=== PATIENT | male | born 1955 | race Caucasian/White ===

== ENCOUNTER 2017-10-02 16:43 | Emergency (ER) | payer BC, SELFPAY ==
[2017-10-02 16:44] VITALS: BP 165/81; PULSE 77; RESP 18; TEMP 36.3; O2SAT 99; BMI 31.6
--- NOTE | 2017-10-02 16:46 | EKG12_ITS ---
Test Reason : CP Blood Pressure : / mmHG Vent. Rate : 068 BPM Atrial Rate : 068 BPM P-R Int : 188 ms QRS Dur : 108 ms QT Int : 414 ms P-R-T Axes : 039 035 039 degrees QTc Int : 440 ms Normal sinus rhythm Normal ECG Confirmed by MYNOR CALL ([id number]), newspaper photo editor COLEEN KELLER ([id number]) on 10/07/2017 10:38:39 AM Referred By: Malcolm Pérez Confirmed By:MYNOR CALL
--- NOTE | 2017-10-02 16:46 | RAD_ITS ---
STUDY: X-RAY CHEST REASON FOR EXAM: Male, 62 years old. Chest pain TECHNIQUE: Single AP portable view of the chest. COMPARISON: 09/16/2011. FINDINGS: The lungs are clear and expanded. There is no demonstrated pleural abnormality. Normal size heart. Normal mediastinum and alisha. Normal visualized pulmonary arteries. Normal visualized aortic arch and descending thoracic aorta. Normal visualized thoracic spine. Normal visualized ribs, clavicles, and shoulders. There is no demonstrated abnormality of the visualized soft tissue structures of the upper abdomen. RAD/Chest 1 View (Portable) IMPRESSION: Normal x-ray examination of the chest. Electronically Signed: Servando Strong MD at 19:13 EDT , Service support ,
[2017-10-02 17:34] LABS: Absolute Neutrophil Count 3.8 X10^3/uL (2.0-7.7); Basophil# 0.03 X10^3/uL; Basophil% 0.5 % (0-1); Eosinophils% 1.5 % (0-5); Hematocrit 45.3 % (40-54); Hemoglobin 15.8 g/dl (13.0-16.5); Lymphocyte % 30.9 % (19-41); Mean Corp Hgb Conc 34.9 g/gl (32-36); Mean Corpuscular Hgb 31.9 pg (27.0-32.0); Mean Corpuscular Volume 91.3 fL (80-94); Mean Platelet Vol. 9.5 fl (6.2-12.0); Monocyte# 0.59 X10^3/uL; Monocyte% 9.1 % (0-10); Neutrophil # 3.76 X10^3/uL (2.7-7.7); Platelet Count 252 K/mm3 (150-450); RBC Distribution Width CV 13.3 % (11.6-14.6); Red Blood Count 4.96 M/mm3 (4.6-6.2); White Blood Count 6.5 K/mm3 (4.4-11.0)
[2017-10-02 17:35] LABS: POSITIVE COUNT NO; POSITIVE DIFFERENTIAL NO; POSITIVE MORPHOLOGY NO
[2017-10-02 17:47] LABS: Anion Gap 6 (5-15); BUN 14 mg/dL (7-18); Calcium,Total 9.2 mg/dL (8.5-10.1); Chloride 101 mmol/L (98-107); Creatinine, Serum 0.93 mg/dL (0.70-1.30); EST Glomerular Filtration Rate 87 mL/min (>60); Est Glom Filt Rate - Afr Amer 105 mL/min (>60); Estimated Creatinine Clearance 78.66 ml/min; Glucose 91 mg/dL (74-106); Potassium 3.5 mmol/L (3.5-5.1); Sodium Level 135 mmol/L (136-145)
[2017-10-02 18:35] VITALS: BP 140/86; PULSE 67; RESP 16; O2SAT 98
--- NOTE | 2017-10-02 18:41 | ED.DCSUM_ITS ---
- ER Visit Summary Date of Service: 10/02/17 Chief Complaint: 3 episodes of chest tightness History of Present Illness: The patient is a 62 M who reports 3 episodes of chest tightness. First 1 occurred upon awakening this morning prior to work. That episode of chest tightness lasted 3060 minutes. Second episode occurred while stationary at work moving objects with his arms. The second episode lasted approximately 30 minutes. The fourth episode lasted for hours and reason why he presented. There is no radiation associated symptoms. There is no alleviating or exacerbating or precipitating factors. He believes he may have had improvement after he took aspirin this morning. He does have history of GERD and states he has burning when he has GERD. He denies any exertional symptoms. He denies black or maroon stool. He denies fever, chills night sweats. He denies any ocular, visual auditory symptoms. He denies cough, orthopnea PND. He denies any abdominal or back pain. He denies food intolerance. He denies leg pain, swelling discoloration. There is no history of PE or DVT. He has no known history of coronary disease. He states he had a similar episode 8 years ago and workup was negative by Dr. Lozada. Physical Examination: Patient appears no distress. He is smiling laughing during H&P. Blood pressure is elevated 1 65/81. Head is atraumatic normocephalic. Pupils are equal round reactive. Extraocular muscles are intact. TMs are pearly white with landmarks noted. Nares patent with no drainage. Posterior pharynx without erythema or exudate. Uvula is midline. There is no dysphonia or dysphasia. Trachea is midline. There is no stridor with auscultation of the neck. Heart is regular without murmur, gallop or rub. S1 and S2 are normal. Lungs are clear to auscultation with good movement of air bilaterally. Abdomen is soft nontender with no palpable cell mass abdominal bruit. There is no asymmetry, swelling, discoloration, leg vein distention, palpable cords or tenderness along the distribution of the deep venous system. Neuro exam is nonfocal Test Results: CBC BMP troponin are all normal. EKG is normal with a rate of 68. Portal chest x-ray interpreted by me as normal. Emergency Department Course and Treatment: Need to evaluate whether the chest pain is cardiac versus pulmonary versus GI. 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 Disposition: Discharged to home Impression: Midsternal chest pain unknown etiology This note was generated with [employer] dictation software. It may contain incorrect words, spelling, and punctuation that were not noted in review of the chart prior to signing ED Disposition - Plan for ED Patient: Disposition: Home or Assisted Living Chief Complaint: Chest Pain Instructions: ED Chest Pain Atypical Unkn Cause Referrals: Mayank Gao MD [Primary Care Provider] - 2 Days
--- NOTE | 2017-10-02 18:55 | ED.RN ---
Verbal and written d/c instructions given. All questions answered. Skin w/d. ABCs intact. Gait steady out of department.
== END 2017-10-02 18:55 | disposition home or self-care (01) ==
PROVIDERS: Emergency Provider Emergency Medicine; Family Provider Family Medicine; PCP Family Medicine
DX: R07.89 Other chest pain (principal); K21.9 Gastro-esophageal reflux disease without esophagitis; Z79.82 Long term (current) use of aspirin; Z79.899 Other long term (current) drug therapy
CPT/HCPCS: 71045; 80048; 84484; 85025; 93005; 99285; A4216

== ENCOUNTER 2017-10-26 23:45 | Emergency (ER) | payer BC, SELFPAY ==
[2017-10-26 23:51] VITALS: BP 155/86; PULSE 66; RESP 19; TEMP 36.7; O2SAT 97; BMI 32.1
--- NOTE | 2017-10-27 00:06 | EKG12_ITS ---
Test Reason : CP Blood Pressure : / mmHG Vent. Rate : 072 BPM Atrial Rate : 072 BPM P-R Int : 176 ms QRS Dur : 110 ms QT Int : 396 ms P-R-T Axes : 046 048 049 degrees QTc Int : 433 ms Sinus rhythm with Premature supraventricular complexes Otherwise normal ECG Confirmed by BERNABE SALAZAR, JORGE ([id number]), editorial assistant KARTIK LANDRUM ([id number]) on 10/29/2017 1:42:54 PM Referred By: PATTI Confirmed By:JORGE KIDD MD
--- NOTE | 2017-10-27 00:10 | RAD_ITS ---
STUDY: X-RAY CHEST REASON FOR EXAM: Male, 62 years old. Chest pain TECHNIQUE: A single frontal view of the chest was obtained. COMPARISON: October 02, 2017 FINDINGS: The lungs are adequately aerated. There is minimal asymmetric opacity in the right lung base. There is no demonstrated pleural abnormality. The cardiac silhouette is normal in size. The mediastinum and hilar regions are unremarkable. Normal visualized pulmonary arteries. There is atherosclerotic calcification of the thoracic aorta. There are diffuse degenerative changes of the visualized spine. There are degenerative changes in both shoulders. There is no demonstrated abnormality of the visualized upper abdomen. RAD/Chest 1 View (Portable) IMPRESSION: There are minimal right basilar opacities which can be seen with atelectasis or mild consolidation. There is no pleural effusion. Electronically Signed: Roselia Connolly MD at 2:02 EDT Tel Direct: [phone], Service support ,
[2017-10-27 00:20] LABS: Absolute Lymphocyte Count 3.34 X10^3/ul (0.83-4.51); Absolute Neutrophil Count 3.3 X10^3/uL (2.0-7.7); Basophil# 0.04 X10^3/uL; Basophil% 0.5 % (0-1); Eosinophil# 0.25 X10^3/uL; Eosinophils% 3.3 % (0-5); Hematocrit 45.1 % (40-54); Hemoglobin 15.8 g/dl (13.0-16.5); Lymphocyte # 3.34 X10^3/ul (4.0); Lymphocyte % 43.7 % (19-41); Mean Corpuscular Hgb 32.3 pg (27.0-32.0); Mean Corpuscular Volume 92.2 fL (80-94); Mean Platelet Vol. 9.8 fl (6.2-12.0); Monocyte# 0.67 X10^3/uL; Monocyte% 8.8 % (0-10); Neutrophil # 3.34 X10^3/uL (2.7-7.7); Neutrophil % 43.6 % (47-70); Platelet Count 271 K/mm3 (150-450); RBC Distribution Width CV 13.5 % (11.6-14.6); RBC Distribution Width SD 45.4 fl (35.1-43.9); Red Blood Count 4.89 M/mm3 (4.6-6.2); White Blood Count 7.7 K/mm3 (4.4-11.0)
[2017-10-27 00:21] LABS: POSITIVE COUNT NO; POSITIVE DIFFERENTIAL NO; POSITIVE MORPHOLOGY NO
--- NOTE | 2017-10-27 00:41 | ED.DCSUM_ITS ---
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 Gao. He reports he has chest pain that began approximately 6 hours ago while he was at rest eating dinner. It is a continuous dull, aching pain. Reports he has a burning pain that began approximately 1 hour later. There is no radiation to his jaw, shoulders, or back. Worst pain is 4-10 at worst and 3-10 currently. Is worsened by nothing including exertion, movement, or breathing. First pain is improved by standing up and walking. No associated nausea, vomiting, diaphoresis, shortness of breath. Patient denies any chest pain or change in dyspnea exertion in the past month. Physical Examination: Vitals: Stable. Afebrile. General: Well-nourished and well-developed. Head: Normocephalic atraumatic. Neck: Supple, no lymphadenopathy. No JVD. Nontender. Cardiovascular: Regular rate and rhythm. No murmurs. Respiratory: No respiratory distress. Clear to auscultation bilaterally. Abdominal: Soft, nontender, nondistended, normal bowel sounds. No guarding, rebound, or peritoneal signs. Back: Nontender. Extremities: Nontender, no edema. Skin: Normal color, no rash. Neurologic: Alert and oriented ?3. Cranial nerves II through XII are intact. Normal strength and sensation. Psych: Normal affect. Test Results: EKG is sinus at 72 with a single PAC. Is unchanged from last month. CBC is marked for segment neutrophils 44 lymphs at 45. Chest x-ray shows no acute disease. Chem-7 is normal. Troponin is negative despite 6 hours of constant pain. Emergency Department Course and Treatment: Patient had taken aspirin prior to arrival. He was given a GI cocktail p.o. Treatment Plan: This time the patient's pain is very atypical. I do not feel that it represents angina. He will be discharged instructions to follow-up his primary care physician within 3-5 days for another exam. Return to the emergency department for any worsening symptoms. Disposition: To home in improved and stable condition. Impression: 1. Atypical chest pain. 2. KARAN score of 2. This note was generated with [employer] software. It may contain incorrect words, spelling, and punctuation that were not noted in review of the chart prior to signing ED Disposition - Plan for ED Patient: Chief Complaint: Chest Pain Instructions: ED Chest Pain Atypical Unkn Cause Referrals: Mayank Gao MD [Primary Care Provider] - 3-5 Days
[2017-10-27 00:46] LABS: Anion Gap 8 (5-15); BUN 16 mg/dL (7-18); BUN/Creat Ratio 15.8 RATIO (10-20); Chloride 103 mmol/L (98-107); Creatinine, Serum 1.01 mg/dL (0.70-1.30); EST Glomerular Filtration Rate 79 mL/min (>60); Est Glom Filt Rate - Afr Amer 96 mL/min (>60); Estimated Creatinine Clearance 72.43 ml/min; Glucose 106 mg/dL (74-106); Potassium 4.3 mmol/L (3.5-5.1); Sodium Level 137 mmol/L (136-145)
[2017-10-27 01:00] VITALS: BP 136/76; PULSE 62; RESP 16; O2SAT 96; O2SAT 97
== END 2017-10-27 01:04 | disposition home or self-care (01) ==
LOC: ED 10-27 00:21
PROVIDERS: Emergency Provider Emergency Medicine; Family Provider Family Medicine; PCP Family Medicine
DX: R07.89 Other chest pain (principal); I49.1 Atrial premature depolarization; I10 Essential (primary) hypertension; E03.9 Hypothyroidism, unspecified; G47.33 Obstructive sleep apnea (adult) (pediatric); Z87.19 Personal history of other diseases of the digestive system; Z86.39 Personal history of other endocrine, nutritional and metabolic disease; Z79.82 Long term (current) use of aspirin; Z79.899 Other long term (current) drug therapy
CPT/HCPCS: 71045; 80048; 84484; 85025; 93005; 99285; A4216

== ENCOUNTER 2017-12-06 09:10 | Day surgery (SDC) | payer BC, SELFPAY ==
[2017-12-06] VITALS (21 sets, daily range): BP systolic 130–154; BP diastolic 62–84; PULSE 53–72; RESP 12–19; TEMP 36.8–37.1; O2SAT 94–100; BMI 31.8; BMI 31.6; BMI 30.9
[2017-12-06 11:40] LABS: ACT Activated Clotting Time 246 sec (74-137)
[2017-12-06] MEDS: 0.9% Normal Saline 1,000 ML 150 ML IV (12:15)
--- NOTE | 2017-12-06 13:46 | CRPHASE1 ---
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 Phase II:: Yes Phase II Referral:: [facility] Start Phase II:: After follow up visit with Cardiology Phase I Charge:: Level I - Education Risk Factors/Lifestyle Smoking Status: Never smoker Second-Hand Smoke:: No Hx Hypertension: Yes Hx Diabetes Mellitus Type 1: No Hx Diabetes Mellitus Type 2: No Hx Metabolic Disorders: No Hx Dyslipidemia: Yes Hx Obesity: Yes Height: 1.73 m Weight:: 92.079 kg BMI: 30.9 Stress: Work-related ETOH: No Risk Factor for Sedentary Lifestyle: Lowest Risk, Moderate Risk Family History: Heart Disease Phase I Education Given On:: [place], Nutrition, Antiplatelet medication, CHF Issues Affecting Care:: None Knowledge of Condition:: Yes Learning Preferences: Verbal, Written, Audio/Visual, Demonstration Hospital Course Presenting Symptoms:: Dull CP Pain Description: Dull Medical/Surgical History Hypertension:: Yes Dyslipidemia:: Yes Discharge/Home/Social Eval Marital Status: - Has 2 children 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
--- NOTE | 2017-12-06 13:50 | CRPHASE1_ITS ---
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 Phase II:: Yes Phase II Referral:: [facility] Start Phase II:: After follow up visit with Cardiology Phase I Charge:: Level I - Education Risk Factors/Lifestyle Smoking Status: Never smoker Second-Hand Smoke:: No Hx Hypertension: Yes Hx Diabetes Mellitus Type 1: No Hx Diabetes Mellitus Type 2: No Hx Metabolic Disorders: No Hx Dyslipidemia: Yes Hx Obesity: Yes Height: 1.73 m Weight:: 92.079 kg BMI: 30.9 Stress: Work-related ETOH: No Risk Factor for Sedentary Lifestyle: Lowest Risk, Moderate Risk Family History: Heart Disease Phase I Education Given On:: [place], Nutrition, Antiplatelet medication, CHF Issues Affecting Care:: None Knowledge of Condition:: Yes Learning Preferences: Verbal, Written, Audio/Visual, Demonstration Hospital Course Presenting Symptoms:: Dull CP Pain Description: Dull Medical/Surgical History Hypertension:: Yes Dyslipidemia:: Yes Discharge/Home/Social Eval Marital Status: - Has 2 children 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
--- NOTE | 2017-12-06 13:52 | CRPH1.INSTRU ---
General Education CAD and cardiac anatomy and function:: Patient communicates acknowledgment, Needs reinforcement Explanation of diagnoses and procedures:: Patient communicates acknowledgment, Needs reinforcement Sign/Symptoms of KS:: Patient communicates acknowledgment, Needs reinforcement Antiplatelet therapy: Patient communicates acknowledgment, Needs reinforcement Proper use of NTG-SL: Patient communicates acknowledgment, Needs reinforcement Emergency procedures and activation of EMS: Patient communicates acknowledgment, Needs reinforcement Compliance of all prescribed medications: Patient communicates acknowledgment, Needs reinforcement Smoking Patient Nicotine/Smoking Risk Factors Are:: Never smoked Nicotine/Smoking Response Code:: Not instructed Dyslipidemia Patient Dyslipidemia Risk Factors Are:: Total Cholesterol, Triglycerides, HDL, LDL Recommendations Include:: Lipid profile not available Dyslipidemia Response Code:: Patient communicates acknowledgment, Needs reinforcement Overweight/Obesity Patient Overweight/Obesity Risk Factors Are:: Obesity - > or = 30 Recommendations Include:: Weight loss of 5-10%, Reduced calorie diet, Exercise 5-7 times/week Overweight/Obesity:: Patient communicates acknowledgment, Needs reinforcement Hypertension Recommendations Include:: Maintain BP <130/85, DASH dietary guidelines, Decrease/maintain normal body weight, Moderation of ETOH Hypertension:: Patient communicates acknowledgment, Needs reinforcement Heart Disease Recommendations Include:: Educated family members of their risk, Educated family members of importance of prevention of heart disease Heart Disease Response Code:: Patient communicates acknowledgment, Needs reinforcement - Family now with risk factor as pt is 62 years old. Diabetes Patient Diabetes Risk Factors Are:: No documented hx of diabetes Diabetes:: Not instructed Metabolic Syndrome Metabolic Syndrome Response Code:: Not instructed Sedentary Patient Sedentary Risk Factors Are:: Lack of regular exercise Recommendations Include:: Aerobic exercise 5-7 times/week for 20-30 minutes continuously, Benefits of regular exercise, Discussed home walking program, Monitored Outpatient Cardiac Rehab Sedentary Response Code:: Patient communicates acknowledgment, Needs reinforcement Stress Recommendations Include:: Identification of stressors, and assessment of coping skills, Stress management techniques Stress Response Code:: Patient communicates acknowledgment, Needs reinforcement
--- NOTE | 2017-12-06 13:55 | CRPH1.INST_ITS ---
General Education CAD and cardiac anatomy and function:: Patient communicates acknowledgment, Needs reinforcement Explanation of diagnoses and procedures:: Patient communicates acknowledgment, Needs reinforcement Sign/Symptoms of MS:: Patient communicates acknowledgment, Needs reinforcement Antiplatelet therapy: Patient communicates acknowledgment, Needs reinforcement Proper use of NTG-SL: Patient communicates acknowledgment, Needs reinforcement Emergency procedures and activation of EMS: Patient communicates acknowledgment , Needs reinforcement Compliance of all prescribed medications: Patient communicates acknowledgment, Needs reinforcement Smoking Patient Nicotine/Smoking Risk Factors Are:: Never smoked Nicotine/Smoking Response Code:: Not instructed Dyslipidemia Patient Dyslipidemia Risk Factors Are:: Total Cholesterol, Triglycerides, HDL, LDL Recommendations Include:: Lipid profile not available Dyslipidemia Response Code:: Patient communicates acknowledgment, Needs reinforcement Overweight/Obesity Patient Overweight/Obesity Risk Factors Are:: Obesity - > or = 30 Recommendations Include:: Weight loss of 5-10%, Reduced calorie diet, Exercise 5 -7 times/week Overweight/Obesity:: Patient communicates acknowledgment, Needs reinforcement Hypertension Recommendations Include:: Maintain BP <130/85, DASH dietary guidelines, Decrease /maintain normal body weight, Moderation of ETOH Hypertension:: Patient communicates acknowledgment, Needs reinforcement Heart Disease Recommendations Include:: Educated family members of their risk, Educated family members of importance of prevention of heart disease Heart Disease Response Code:: Patient communicates acknowledgment, Needs reinforcement - Family now with risk factor as pt is 62 years old. Diabetes Patient Diabetes Risk Factors Are:: No documented hx of diabetes Diabetes:: Not instructed Metabolic Syndrome Metabolic Syndrome Response Code:: Not instructed Sedentary Patient Sedentary Risk Factors Are:: Lack of regular exercise Recommendations Include:: Aerobic exercise 5-7 times/week for 20-30 minutes continuously, Benefits of regular exercise, Discussed home walking program, Monitored Outpatient Cardiac Rehab Sedentary Response Code:: Patient communicates acknowledgment, Needs reinforcement Stress Recommendations Include:: Identification of stressors, and assessment of coping skills, Stress management techniques Stress Response Code:: Patient communicates acknowledgment, Needs reinforcement
--- NOTE | 2017-12-06 16:04 | PCM.DC.CCA ---
Discharge Diet: Low fat/ Low Cholesterol Discharge Activity: Return to Normal Activity May shower in (days): 1 May resume sexual activity in: 1-2 weeks Lifting Restrictions: Do not lift anything greater than 10 pounds for 3 days. Call your doctor if your incision/area has: Continuous Slow Oozing, Sudden Increased Bleeding, Increased Pain/ Swelling, Increased Redness, Foul Smelling Discharge, Swelling at the incision site Call your doctor if you observe: Fever of 101 or Higher, Shortness of breath, Chest pain Remove Dressing in (days):: 1 Cleanse incision/area with: Soap & Water Additional Instructions: You will continue with Plavix for at least one year. If anyone asks you to stop or hold this please call Dr. Argueta first. Please contact Dr. Argueta's office regarding follow-up appointment. Ideally you should be seen recently after discharge and will be instructed to begin cardiac rehab. Allergies/Adverse Reactions: Allergies adhesive tape Adverse Reaction (Verified 12/05/17 08:38) Rash fenofibrate [From Tricor] Adverse Reaction (Verified 10/26/17 23:55) Other made me mean Medications to take at Discharge Aspirin 81 mg PO DAILY 10/02/17 Diltiazem HCl [Cartia Xt] 300 mg PO DAILY 10/02/17 Levothyroxine [Synthroid] 75 mcg PO DAILY 10/02/17 Meloxicam 15 mg PO DAILY PRN 10/02/17 Tadalafil [Cialis] 20 mg PO DAILY PRN 10/02/17 Testosterone [Androgel] 1.25 gm TD DAILY 10/02/17 Valsartan/Hydrochlorothiazide [Valsartan-Hctz 160-25 mg Tab] 1 each PO DAILY 10/02/17 clopidogrel 75 mg tablet 75 mg PO QDAY #30 tab 11/28/17 Atorvastatin Calcium 40 mg PO QHS 12/05/17 Cholecalciferol (Vitamin D3) 5,000 unit PO DAILY 12/05/17 Docosahexanoic Acid [Algal [place]-3 Dha] 1,200 mg PO BID 12/05/17 Glucosamine HCl/Chondr Claudio A Na [Sv Glucosamine-Chondroit Cplt] 1 each PO DAILY 12/05/17 Nitroglycerin [Nitrostat] 0.4 mg SUBLINGUAL Q5M PRN 12/05/17 Omeprazole [Prilosec] 20 mg PO DAILY 12/05/17 Primary Care Physician: Mayank Gao MD [Primary Care Provider] - Test Results: Test results from this visit will be discussed in further detail at your follow-up appointment, if applicable. Please Follow Up With: Dr. Argueta When: Call his office to schedule Proposed Discharge Date: 12/07/17 Cardiac Rehabilitation Info Cardiac Rehabilitation Program Information: Cardiac Rehabilitation is important for patients like you who are recovering from a heart problem. Cardiac rehabilitation programs are recognized as integral to the continued care of the patient with coronary heart disease. The cardiac rehabilitation program is designed to optimize a patient's physical, psychological, and social functioning. Health medicare contact specialist work in cardiac rehabilitation programs and assist you with getting the treatments you need to get stronger and healthier - like exercise, healthy eating habits, and medications. Cardiac rehabilitation has been show to help people with heart problems live longer and have better life enjoyment than people who do not go to cardiac rehabilitation. Please contact the Cardiac Rehabilitation Program at [facility] at in two weeks if you have not heard from them.
[2017-12-06] MEDS: Pantoprazole Sodium 20 MG Tablet PO (21:00)
[2017-12-06] MEDS: Atorvastatin Calcium 40 MG Tablet PO (21:00)
[2017-12-07] VITALS (12 sets, daily range): BP systolic 126–153; BP diastolic 60–76; PULSE 53–67; RESP 11–19; TEMP 36.9–37; O2SAT 96–98
[2017-12-07 04:58] LABS: Hematocrit 39.5 % (40-54); Hemoglobin 13.5 g/dl (13.0-16.5); Mean Corp Hgb Conc 34.2 g/gl (32-36); Mean Corpuscular Hgb 31.8 pg (27.0-32.0); Mean Corpuscular Volume 93.2 fL (80-94); Mean Platelet Vol. 9.9 fl (6.2-12.0); Platelet Count 227 K/mm3 (150-450); RBC Distribution Width CV 13.5 % (11.6-14.6); RBC Distribution Width SD 45.9 fl (35.1-43.9); Red Blood Count 4.24 M/mm3 (4.6-6.2); White Blood Count 8.3 K/mm3 (4.4-11.0)
[2017-12-07 05:03] LABS: Scan Indicated on CBC? Y/N NO
[2017-12-07 05:18] LABS: Anion Gap 11 (5-15); BUN 11 mg/dL (7-18); BUN/Creat Ratio 12.5 RATIO (10-20); Chloride 108 mmol/L (98-107); Cholesterol 99 mg/dL (200); Creatinine, Serum 0.88 mg/dL (0.70-1.30); EST Glomerular Filtration Rate 93 mL/min (>60); Est Glom Filt Rate - Afr Amer 112 mL/min (>60); Estimated Creatinine Clearance 83.13 ml/min; Glucose 87 mg/dL (74-106); High Density Lipoprotein 23 mg/dL; Potassium 3.6 mmol/L (3.5-5.1); Sodium Level 143 mmol/L (136-145); Triglycerides 155 mg/dL; Very Low Density Lipoprotein 31 mg/dL (5-40)
[2017-12-07] MEDS: 0.9% NaCl Peripheral Flush Adult/Peds IV (06:15)
[2017-12-07] MEDS: Levothyroxine 75 MCG Tablet PO (06:15)
[2017-12-07] MEDS: Aspirin 81 MG TAB.CHEW PO (08:06)
[2017-12-07] MEDS: Clopidogrel Bisulfate 75 MG Tablet PO (08:44)
[2017-12-07] MEDS: dilTIAZem CD 300 MG Capsule PO (08:44)
[2017-12-07] MEDS: Losartan Potassium 50 MG Tablet PO (08:45)
[2017-12-07] MEDS: hydroCHLOROthiazide 25 MG Tablet PO (08:45)
[2017-12-07] MEDS: Pantoprazole Sodium 20 MG Tablet PO (08:45)
--- NOTE | 2017-12-07 09:23 | PCM.PN.CARD ---
Subjectve: Patient doing very well this morning, feels much better. Right groin is clean/dry/intact, no hematoma, bruits or thrills. He has slight tenderness which he had during the procedure. Telemetry is negative overnight. EKG this morning shows normal sinus rhythm, no acute changes. Hemoglobin and creatinine have been within nominal limits. Objective: Vital Signs Temp Pulse Resp BP Pulse Ox 98.6 F 67 18 153/71 H 97 12/07/17 08:01 12/07/17 08:01 12/07/17 08:01 12/07/17 08:01 12/07/17 08:01 Oxygen Delivery Method Room Air Weight: 203 lb Body Mass Index (BMI) 31.6 Intake and Output for Last 24 Hours 12/05/17 12/06/17 12/07/17 23:59 23:59 23:59 Intake Total 1881 / 1881 240 / 240 Output Total 400 / 400 Balance 1481 / 1481 240 / 240 General: Awake, Alert, Oriented x 3 HEENT: PERRL, EOMI, Sclera Non Icteric Neck: Supple, Good ROM, No Lymph Node Enlargement Lungs: Clear to auscultation Cardiovascular: Regular Rhythm, Normal S1, Normal S2, No Murmurs, No Rubs, No Gallops Vascular: No Carotid Bruits, Normal Femoral Pulses, Normal Radial Pulses, Normal Dorsalis Pedal Pulse, Normal Posterior Tibial Pulses Abdomen: Bowel Sounds Present, Soft, Non Tender, No HSM, No Organomegaly Extremities: No Cyanosis, No Clubbing, No edema Neurological: No Focal Motor or Sensory Deficit 12/07/17 04:40: WBC 8.3, RBC 4.24 L, Hgb 13.5, Hct 39.5 L, MCV 93.2, MCH 31.8, MCHC 34.2, RDW 13.5, RDW Differential 45.9 H, Plt Count 227, MPV 9.9 12/07/17 04:40: Sodium 143, Potassium 3.6, Chloride 108 H, Carbon Dioxide 24.0, Anion Gap 11, BUN 11, Creatinine 0.88, Est GFR (MDRD) Af Amer 112, Est GFR (MDRD) Non-Af 93, BUN/Creatinine Ratio 12.5, Glucose 87, Calcium 8.0 L, Triglycerides 155, Cholesterol 99, LDL Cholesterol 45, VLDL Cholesterol 31, HDL Cholesterol 23 L Rhythm: EKG: ECHO: Stress Test: Cardiac Cath: PCI: CT Surgery: Holter monitor: EPS: PPM: CXR: Chest CT Scan: Medical Necessity - Tobacco Use Smoking Status: Never smoker Assessment/Plan 1. Coronary artery disease: The patient presented with unstable angina symptoms with abnormal stress test consistent with obtuse marginal stenosis. The patient was found to have a significant critical lesion in the ostium proximal portion of his obtuse marginal #2. He underwent successful angioplasty and drug-eluting stenting of the ostial proximal OM #2 with no encroachment upon the main AV circumflex. Patient feels much better today, and recommend continuing his aspirin, Plavix, diltiazem per Dr. Lozada, losartan, and hydrochlorothiazide. He will return to either Dr. Lozada's or my office in 2 weeks time for a groin check, followed by cardiac rehab in 2 weeks time. The patient's remaining coronary arteries have minimal nonobstructive disease of the LAD and right coronary artery. No additional intervention or FFR evaluation is needed at this time. 2. Hyperlipidemia: Continue Lipitor therapy. Repeat lipid profile at the conclusion of cardiac rehab. 3. Patient may be discharged home. He may remain off work for 1 week's time for his groin to heal, he will follow-up with Dr. Lozada going forward. Code Visit Inpatient E&M: 37520 Subs Hosp L2
== END 2017-12-07 09:45 | disposition home or self-care (01) ==
LOC: CLSP 09:11 → ICU 10:46
PROVIDERS: Family Provider Family Medicine; PCP Family Medicine; Visit Provider Internal Medicine Cardiovascular Disease
DX: I25.10 Atherosclerotic heart disease of native coronary artery without angina pectoris (principal); R94.39 Abnormal result of other cardiovascular function study; I11.9 Hypertensive heart disease without heart failure; G47.33 Obstructive sleep apnea (adult) (pediatric); E78.5 Hyperlipidemia, unspecified; K57.30 Diverticulosis of large intestine without perforation or abscess without bleeding; E03.9 Hypothyroidism, unspecified; K21.9 Gastro-esophageal reflux disease without esophagitis; Z87.442 Personal history of urinary calculi; Z79.82 Long term (current) use of aspirin; Z79.899 Other long term (current) drug therapy
CPT/HCPCS: 80048; 80061; 85027; 85347; 92921; 92928; 93005; 93458; C1760; J7030; J7040; Q9967; A4216; C1725; C1769; C1874; C1887; C1894; C9600

== ENCOUNTER 2017-12-09 00:32 | Emergency (ER) | payer BC, SELFPAY ==
[2017-12-06 13:52] VITALS: BMI 30.9
[2017-12-09 00:32] VITALS: BP 142/73; PULSE 69; RESP 18; TEMP 36.6; O2SAT 97; BMI 30.3
[2017-12-09 00:41] VITALS: O2SAT 98
[2017-12-09] MEDS: Aspirin 81 MG TAB.CHEW 162 MG PO (00:45)
--- NOTE | 2017-12-09 00:45 | ED.DCSUM_ITS ---
- ER Visit Summary Date of Service: 12/09/17 Chief Complaint: Chest pain History of Present Illness: The patient is a 62 M who presents for 3-1/2 hours of chest tightness and burning. Patient was watching television in his recliner when he began having substernal chest tightness. It then progressed to additional burning sensation in the left chest. Patient took Mylanta and his GERD medications, with some resolution of the chest tightness but persistent burning. He denies any shortness of breath, fever, abdominal pain, back pain, nausea or vomiting, radiation of the pain at all, or any other complaints. He had similar symptoms recently, which resulted in him getting a cardiac catheterization and a stent placed 2 days ago. Patient is now on Plavix. He took 2 baby aspirin prior to presentation. Pain is currently rated at a 2 out of 10. Physical Examination: Vital signs: afebrile, hemodynamically stable, no hypoxia on room air General: well nourished, well developed, in no distress Skin: warm, dry, no rash, no pallor HEENT: normocephalic and atraumatic; PERRL, EOMI, moist mucous membranes Cardiovascular: regular rate and rhythm without murmurs, no peripheral edema, 2 + pulses all distal extremities Respiratory: No increased work of breathing, lungs are clear to auscultation bilaterally, no rales, rhonchi or wheezing Abdominal: Abdomen is soft, nontender with normoactive bowel sounds, no guarding or rebound, no masses MSK: Moves all extremities, no deformities, normal strength Neuro: Awake and alert, oriented ?4. No facial droop, sensation and motor function intact and symmetric Test Results: [] Emergency Department Course and Treatment: Patient was given an additional 162 mg of aspirin and sublingual nitro. EKG showed a sinus rhythm with Q-wave in lead III, no other changes. Patient had no change in his discomfort with the sublingual nitroglycerin, and his pain was mild to begin with. The tightness subsided and patient had intermittent burning sensation. He was then given a GI cocktail and had resolution of his symptoms. Labs showed a troponin of 0.078 , which is mildly elevated, but patient did have a cardiac catheterization within the last 72 hours and thus it may be elevated secondary to the catheterization and stent placement. There are no trended troponins in patient' s record to compare tonight troponin to. Labs were otherwise unremarkable. Chest x-ray showed no acute changes. Patient was discussed with Dr. Stephen, who felt the patient's symptoms are unlikely to be cardiac ischemia, given the successful catheterization on Saturday. If patient's symptoms have resolved, patient can be discharged home and follow-up with Dr. Suarez as planned. Patient was reevaluated and was pain-free. He had an occasional twinge that he could pinpoint with one finger on his mid chest. Otherwise no symptoms. EKG was repeated to look for any changes in the meantime. Repeat EKG was unchanged. Patient was pain-free at time of discharge. He will return if any worsening of his condition. Treatment Plan: [] Disposition: [] Impression: Chest pain, s/p recent cardiac stent placement This note was generated with [employer] dictation software. It may contain incorrect words, spelling, and punctuation that were not noted in review of the chart prior to signing ED Disposition - Plan for ED Patient: Disposition: Home or Assisted Living Chief Complaint: Chest Pain Instructions: Coronary Stents, ED Chest Pain Atypical Unkn Cause Referrals: Sixto Argueta MD [STAFF PHYSICIAN] - 1 Day for another exam Mayank Gao MD [Primary Care Provider] - 3-5 Days if not improving Additional Instructions: Please make an appointment with your market research executive as soon as possible. Continue all medications and follow all instructions that you were given after your cardiac catheterization. If you have any return of your chest pain or any new concerning symptoms, please return to the emergency department immediately for another evaluation.
[2017-12-09 00:46] VITALS: BP 130/76; PULSE 68
[2017-12-09 00:56] LABS: Absolute Lymphocyte Count 2.57 X10^3/ul (0.83-4.51); Absolute Neutrophil Count 4.1 X10^3/uL (2.0-7.7); Basophil# 0.03 X10^3/uL; Basophil% 0.4 % (0-1); Eosinophil# 0.23 X10^3/uL; Hemoglobin 14.4 g/dl (13.0-16.5); Lymphocyte # 2.57 X10^3/ul (4.0); Lymphocyte % 33.3 % (19-41); Mean Corp Hgb Conc 34.3 g/gl (32-36); Mean Corpuscular Hgb 31.9 pg (27.0-32.0); Mean Corpuscular Volume 92.9 fL (80-94); Mean Platelet Vol. 9.8 fl (6.2-12.0); Monocyte# 0.75 X10^3/uL; Monocyte% 9.7 % (0-10); Neutrophil # 4.12 X10^3/uL (2.7-7.7); Neutrophil % 53.5 % (47-70); POSITIVE COUNT NO; POSITIVE DIFFERENTIAL NO; POSITIVE MORPHOLOGY NO; Platelet Count 243 K/mm3 (150-450); RBC Distribution Width CV 13.3 % (11.6-14.6); Red Blood Count 4.52 M/mm3 (4.6-6.2); White Blood Count 7.7 K/mm3 (4.4-11.0)
[2017-12-09 00:58] LABS: International Normalized Ratio 1.1; Prothrombin Time (Protime)PT. 14.3 SECONDS (11.7-14.9)
[2017-12-09 00:59] LABS: Partial Thromboplast Time 29.3 Seconds (24.1-36.2)
[2017-12-09 01:19] LABS: Anion Gap 8 (5-15); BUN 13 mg/dL (7-18); BUN/Creat Ratio 13.2 RATIO (10-20); Calcium,Total 9.3 mg/dL (8.5-10.1); Chloride 101 mmol/L (98-107); Creatinine, Serum 0.98 mg/dL (0.70-1.30); EST Glomerular Filtration Rate 82 mL/min (>60); Est Glom Filt Rate - Afr Amer 99 mL/min (>60); Estimated Creatinine Clearance 74.64 ml/min; Glucose 103 mg/dL (74-106); Potassium 3.4 mmol/L (3.5-5.1); Sodium Level 137 mmol/L (136-145)
[2017-12-09] MEDS: Mag Hydrox/Al Hydrox/Simeth 30 ML UDC PO (01:46)
--- NOTE | 2017-12-09 02:38 | ED.DEP ---
ED Disposition - Plan for ED Patient: Disposition: Home or Assisted Living Chief Complaint: Chest Pain Instructions: Coronary Stents, ED Chest Pain Atypical Unkn Cause Referrals: Sixto Argueta MD [STAFF PHYSICIAN] - 1 Day for another exam Mayank Gao MD [Primary Care Provider] - 3-5 Days if not improving Additional Instructions: Please make an appointment with your area manager as soon as possible. Continue all medications and follow all instructions that you were given after your cardiac catheterization. If you have any return of your chest pain or any new concerning symptoms, please return to the emergency department immediately for another evaluation.
[2017-12-09 02:48] VITALS: BP 124/72; PULSE 56; RESP 15; O2SAT 94
== END 2017-12-09 02:57 | disposition home or self-care (01) ==
PROVIDERS: Emergency Provider Emergency Medicine; Family Provider Family Medicine; PCP Family Medicine
DX: R07.89 Other chest pain (principal); Z95.5 Presence of coronary angioplasty implant and graft; I25.10 Atherosclerotic heart disease of native coronary artery without angina pectoris; K21.9 Gastro-esophageal reflux disease without esophagitis; E78.00 Pure hypercholesterolemia, unspecified; Z79.82 Long term (current) use of aspirin; Z79.899 Other long term (current) drug therapy
CPT/HCPCS: 71045; 80048; 84484; 85025; 85610; 85730; 93005; 99285

== ENCOUNTER → 2017-12-10 10:57 | Outpatient (CLI) | payer SELFPAY, BC ==
[2017-12-06 13:52] VITALS: BMI 30.9
== END ==
PROVIDERS: Family Provider Family Medicine; PCP Family Medicine; Visit Provider Internal Medicine Cardiovascular Disease
DX: S75.001A Unspecified injury of femoral artery, right leg, initial encounter (principal); Z95.5 Presence of coronary angioplasty implant and graft
CPT/HCPCS: 93926

== ENCOUNTER 2017-12-10 23:35 | Emergency (ER) | payer BC, SELFPAY ==
[2017-12-06 13:52] VITALS: BMI 30.9
[2017-12-10 23:40] VITALS: BP 148/84; PULSE 71; RESP 20; TEMP 36.6; O2SAT 99; BMI 31.6
--- NOTE | 2017-12-11 00:02 | ED.RN ---
10# SANDBAG APPLIED TO RIGHT GROIN ON ARRIVAL TO ED.
[2017-12-11 00:27] LABS: Absolute Lymphocyte Count 2.22 X10^3/ul (0.83-4.51); Basophil# 0.05 X10^3/uL; Basophil% 0.7 % (0-1); Eosinophil# 0.27 X10^3/uL; Eosinophils% 3.8 % (0-5); Hematocrit 41.1 % (40-54); Hemoglobin 14.1 g/dl (13.0-16.5); Lymphocyte # 2.22 X10^3/ul (4.0); Lymphocyte % 31.4 % (19-41); Mean Corp Hgb Conc 34.3 g/gl (32-36); Mean Corpuscular Hgb 31.9 pg (27.0-32.0); Mean Platelet Vol. 9.8 fl (6.2-12.0); Monocyte# 0.57 X10^3/uL; Monocyte% 8.1 % (0-10); Neutrophil # 3.95 X10^3/uL (2.7-7.7); Neutrophil % 55.9 % (47-70); Platelet Count 283 K/mm3 (150-450); RBC Distribution Width CV 13.3 % (11.6-14.6); RBC Distribution Width SD 45.1 fl (35.1-43.9); Red Blood Count 4.42 M/mm3 (4.6-6.2); White Blood Count 7.1 K/mm3 (4.4-11.0)
[2017-12-11 00:28] LABS: International Normalized Ratio 1.1; Prothrombin Time (Protime)PT. 14.2 SECONDS (11.7-14.9)
[2017-12-11 00:29] LABS: POSITIVE COUNT NO; POSITIVE DIFFERENTIAL NO; POSITIVE MORPHOLOGY NO; Partial Thromboplast Time 28.7 Seconds (24.1-36.2)
[2017-12-11 00:38] VITALS: BP 144/76; PULSE 67; RESP 18; O2SAT 97
[2017-12-11 00:41] LABS: Anion Gap 9 (5-15); BUN 16 mg/dL (7-18); BUN/Creat Ratio 15.8 RATIO (10-20); Calcium,Total 9.2 mg/dL (8.5-10.1); Chloride 103 mmol/L (98-107); Creatinine, Serum 1.01 mg/dL (0.70-1.30); EST Glomerular Filtration Rate 79 mL/min (>60); Est Glom Filt Rate - Afr Amer 96 mL/min (>60); Estimated Creatinine Clearance 72.43 ml/min; Glucose 96 mg/dL (74-106); Potassium 3.6 mmol/L (3.5-5.1); Sodium Level 136 mmol/L (136-145)
--- NOTE | 2017-12-11 01:15 | ED.VISSUMM ---
- ER Visit Summary Date of Service: 12/11/17 Chief Complaint: Wound check History of Present Illness: The patient is a 62 M who had a heart cath on December 06. Patient was in for an ultrasound earlier today showing a 0.8 x 1.0 cm pseudoaneurysm. Tonight he stopped on a spider and felt a pulling sensation in his right groin. He went and laid down and noted an increasing swelling area in the groin. EMS was called and pressure was held to the area. Patient denies chest pain or shortness of breath. He denies paresthesias in his leg. Physical Examination: Vital signs are unremarkable. Patient is lying in bed no acute distress. Heart is regular rate and rhythm. Lung sounds are clear. Abdomen is soft nontender. Right groin examination reveals mild diffuse tenderness. He has extensive ecchymosis to that whole area. There are no focal masses appreciated on my exam. He does have strong distal pulses. Test Results: CBC reveals a hemoglobin of 14.1 compared to Hemoccult of 14.4 two days ago. Chemistry studies normal. Coags normal. Emergency Department Course and Treatment: Patient remained with a sandbag to the right groin. I spoke with Dr. Mahoney shortly after I saw the patient. Due to the potential for bad vascular complications fairly quickly, patient should be observed at a tertiary center with vascular surgery medially available. This was discussed with patient and family at bedside. I spoke with Aurelio davalos and patient has been accepted in transfer. Treatment Plan: [] Disposition: Transfer Impression: Right groin swelling with known pseudoaneurysm This note was generated with [employer] dictation software. It may contain incorrect words, spelling, and punctuation that were not noted in review of the chart prior to signing ED Disposition - Plan for ED Patient: Chief Complaint: Wound Check Referrals: Mayank Gao MD [Primary Care Provider] -
[2017-12-11 01:33] VITALS: BP 145/75; PULSE 64; RESP 16; O2SAT 95
== END 2017-12-11 01:45 | disposition home or self-care (01) ==
LOC: ED 12-11
PROVIDERS: Emergency Provider Emergency Medicine; Family Provider Family Medicine; PCP Family Medicine
DX: R19.09 Other intra-abdominal and pelvic swelling, mass and lump (principal); I72.9 Aneurysm of unspecified site; I25.10 Atherosclerotic heart disease of native coronary artery without angina pectoris; I10 Essential (primary) hypertension; E78.00 Pure hypercholesterolemia, unspecified; E03.9 Hypothyroidism, unspecified; Z95.5 Presence of coronary angioplasty implant and graft; Z79.82 Long term (current) use of aspirin; Z79.899 Other long term (current) drug therapy
CPT/HCPCS: 80048; 85025; 85610; 85730; 99285; A4216

== ENCOUNTER 2017-12-13 08:33 | Emergency (ER) | payer BC, SELFPAY ==
[2017-12-06 13:52] VITALS: BMI 30.9
[2017-12-13 08:40] VITALS: BP 157/79; PULSE 69; RESP 17; TEMP 36.4; O2SAT 97; BMI 31.4
[2017-12-13 08:45] VITALS: BP 141/72
[2017-12-13 08:58] VITALS: BP 141/72; PULSE 63; RESP 16; O2SAT 100
[2017-12-13 09:15] VITALS: BP 127/80
--- NOTE | 2017-12-13 09:19 | ED.VISSUMM ---
- ER Visit Summary Date of Service: 12/13/17 Chief Complaint: Pseudoaneurysm History of Present Illness: The patient is a 62 M who had a heart cath on December 06. He developed a pseudoaneurysm to the right groin site. He was transferred to [facility] in the professor of early childhood education hours of 829. Ultrasound there showed the pseudoaneurysm had increased in size and he was injected with thrombin. He was discharged in the hospital last evening. Patient states when he went to get out of bed this morning he felt a pinching sensation in his right groin. He felt like the area was enlarged and was pulsating. EMS was called. Physical Examination: Vital signs are unremarkable. Patient's lying in bed no acute distress. He is holding pressure to his right groin. Heart is regular rate and rhythm. Lung sounds are clear. Abdomen is soft and nontender. Right groin site reveals mild diffuse tenderness. There is extensive ecchymosis noted. He has strong distal pulses. Test Results: Arterial ultrasound is performed and shows thrombosed pseudoaneurysm. No neck is visualized. Emergency Department Course and Treatment: I spoke with the nurse practitioner for the patient's vascular surgeon at [place] and patient is safe for discharge to home and follow-up. I also spoke with Dr. Stephen to update him on the patient's current presentation. Patient declines need for anything for pain at home. Treatment Plan: [] Disposition: Discharge Impression: Right groin strain with pseudoaneurysm This note was generated with [employer] dictation software. It may contain incorrect words, spelling, and punctuation that were not noted in review of the chart prior to signing ED Disposition - Plan for ED Patient: Chief Complaint: Wound Referrals: Mayank Gao MD [Primary Care Provider] -
--- NOTE | 2017-12-13 09:26 | ED.DCSUM_ITS ---
- ER Visit Summary Date of Service: 12/13/17 Chief Complaint: Pseudoaneurysm History of Present Illness: The patient is a 62 M who had a heart cath on December 06. He developed a pseudoaneurysm to the right groin site. 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 Ultrasound there showed the pseudoaneurysm had increased in size and he was injected with thrombin. He was discharged in the hospital last evening. Patient states when he went to get out of bed this morning he felt a pinching sensation in his right groin. He felt like the area was enlarged and was pulsating. EMS was called. Physical Examination: Vital signs are unremarkable. Patient's lying in bed no acute distress. He is holding pressure to his right groin. Heart is regular rate and rhythm. Lung sounds are clear. Abdomen is soft and nontender. Right groin site reveals mild diffuse tenderness. There is extensive ecchymosis noted. He has strong distal pulses. Test Results: Arterial ultrasound is performed and shows thrombosed pseudoaneurysm. No neck is visualized. Emergency Department Course and Treatment: I spoke with the nurse practitioner for the patient's vascular surgeon at [place] and patient is safe for discharge to home and follow-up. I also spoke with Dr. Stephen to update him on the patient's current presentation. Patient declines need for anything for pain at home. Treatment Plan: [] Disposition: Discharge Impression: Right groin strain with pseudoaneurysm This note was generated with [employer] dictation software. It may contain incorrect words, spelling, and punctuation that were not noted in review of the chart prior to signing ED Disposition - Plan for ED Patient: Chief Complaint: Wound Referrals: Mayank Gao MD [Primary Care Provider] -
--- NOTE | 2017-12-13 09:26 | ED.DEP ---
ED Disposition - Plan for ED Patient: Disposition: Home or Assisted Living Chief Complaint: Wound Instructions: ED Cardiac Cath Post Bleed Hematom Referrals: Mayank Gao MD [Primary Care Provider] - Seun Stephen MD [STAFF PHYSICIAN] -
[2017-12-13 10:03] VITALS: BP 143/69; PULSE 61; RESP 17; O2SAT 97
== END 2017-12-13 10:06 | disposition home or self-care (01) ==
PROVIDERS: Emergency Provider Emergency Medicine; Family Provider Family Medicine; PCP Family Medicine
DX: S39.011A Strain of muscle, fascia and tendon of abdomen, initial encounter (principal); I72.4 Aneurysm of artery of lower extremity; X58.XXXA Exposure to other specified factors, initial encounter; Y93.9 Activity, unspecified; Y92.9 Unspecified place or not applicable; I25.10 Atherosclerotic heart disease of native coronary artery without angina pectoris; I10 Essential (primary) hypertension; E78.00 Pure hypercholesterolemia, unspecified; E03.9 Hypothyroidism, unspecified; Z95.5 Presence of coronary angioplasty implant and graft; Z79.82 Long term (current) use of aspirin; Z79.899 Other long term (current) drug therapy
CPT/HCPCS: 93926; 99284

== ENCOUNTER 2017-12-13 17:05 | Emergency (ER) | payer BC, SELFPAY ==
[2017-12-06 13:52] VITALS: BMI 30.9
[2017-12-13 17:07] VITALS: BP 167/75; PULSE 74; RESP 18; TEMP 36.9; O2SAT 100; BMI 31.9
[2017-12-13 17:35] VITALS: O2SAT 95
[2017-12-13] MEDS: Mag Hydrox/Al Hydrox/Simeth 30 ML UDC PO (17:53)
[2017-12-13 18:13] VITALS: PULSE 67; RESP 16; O2SAT 96
--- NOTE | 2017-12-13 18:34 | ED.VISSUMM ---
- ER Visit Summary Date of Service: 12/13/17 Chief Complaint: Tightness in chest History of Present Illness: The patient is a 62 M with tightness in his chest. Symptoms started early this morning and have lasted for hours. He describes them as esophageal spasms. He has had these intermittently over the last week. One week ago today, the patient had a cardiac catheterization with stent placement by Dr. Stephen. The patient says that the procedure went well and he was doing well. He presented 2 days afterwards for chest pain. He had a negative workup and his symptoms resolved with a GI cocktail. He presented another 2 days after that with a right groin pseudoaneurysm and was sent to [place] where he had an injection of thrombin and he was sent home. This seems to be improving. He followed up with Dr. Lozada who started Prilosec for his symptoms. They were considering referral to GI. His symptoms started again this morning. He tried nitroglycerin and Mylanta with no relief. He went to see his PCP today who was concerned for an abnormal EKG. He had T-wave inversions in lead V1 only. He was referred to the emergency department for evaluation. Patient has no other symptoms like shortness of breath, nausea, vomiting, diaphoresis, or lightheadedness. Physical Examination: Patient has a blood pressure of 167/75. Otherwise vitals unremarkable. Afebrile. Sitting comfortably. No acute distress. Skin normal color without diaphoresis or pallor. Heart regular rate and rhythm. Lungs clear throughout all oliva. Abdomen soft and nontender. Extremities nontender. Test Results: EKG shows sinus rhythm at a rate of 66. No sign of acute ischemia or infarction pattern. His EKG appears similar to his 5 prior EKGs in the system. Troponin was normal. Emergency Department Course and Treatment: Patient was placed on a monitor. EKG was done and labs drawn. His workup was unremarkable. He was treated with a GI cocktail, and his symptoms completely resolved. The patient was not concerned about his coronary disease. He has had multiple evaluations since his stent placement and has seen his head girls golf coach earlier this week. Out of an abundance of caution, we did recheck his troponin which was normal. He declined any further workup or evaluation. Patient would like to go home and follow-up with his doctors. I advised him to return for any new or worsening issues. Treatment Plan: As above Disposition: Discharged Impression: 1. Chest pain This note was generated with [employer] dictation software. It may contain incorrect words, spelling, and punctuation that were not noted in review of the chart prior to signing ED Disposition - Plan for ED Patient: Chief Complaint: Chest Pain Referrals: Mayank Gao MD [Primary Care Provider] -
--- NOTE | 2017-12-13 18:39 | ED.DCSUM_ITS ---
- ER Visit Summary Date of Service: 12/13/17 Chief Complaint: Tightness in chest History of Present Illness: The patient is a 62 M with tightness in his chest. Symptoms started early this morning and have lasted for hours. He describes them as esophageal spasms. He has had these intermittently over the last week. One week ago today, the patient had a cardiac catheterization with stent placement by Dr. Stephen. The patient says that the procedure went well and he was doing well. He presented 2 days afterwards for chest pain. He had a negative workup and his symptoms resolved with a GI cocktail. He presented another 2 days after that with a right groin pseudoaneurysm and was sent to [employer] [facility] where he had an injection of thrombin and he was sent home. This seems to be improving. He followed up with Dr. Lozada who started Prilosec for his symptoms. They were considering referral to GI. His symptoms started again this morning. He tried nitroglycerin and Mylanta with no relief. He went to see his PCP today who was concerned for an abnormal EKG. He had T-wave inversions in lead V1 only. He was referred to the emergency department for evaluation. Patient has no other symptoms like shortness of breath, nausea, vomiting, diaphoresis, or lightheadedness. Physical Examination: Patient has a blood pressure of 167/75. Otherwise vitals unremarkable. Afebrile. Sitting comfortably. No acute distress. Skin normal color without diaphoresis or pallor. Heart regular rate and rhythm. Lungs clear throughout all oliva. Abdomen soft and nontender. Extremities nontender. Test Results: EKG shows sinus rhythm at a rate of 66. No sign of acute ischemia or infarction pattern. His EKG appears similar to his 5 prior EKGs in the system. Troponin was normal. Emergency Department Course and Treatment: Patient was placed on a monitor. EKG was done and labs drawn. His workup was unremarkable. He was treated with a GI cocktail, and his symptoms completely resolved. The patient was not concerned about his coronary disease. He has had multiple evaluations since his stent placement and has seen his dairy scientist earlier this week. Out of an abundance of caution, we did recheck his troponin which was normal. He declined any further workup or evaluation. Patient would like to go home and follow-up with his doctors. I advised him to return for any new or worsening issues. Treatment Plan: As above Disposition: Discharged Impression: 1. Chest pain This note was generated with [employer] dictation software. It may contain incorrect words, spelling, and punctuation that were not noted in review of the chart prior to signing ED Disposition - Plan for ED Patient: Chief Complaint: Chest Pain Referrals: Mayank Gao MD [Primary Care Provider] -
--- NOTE | 2017-12-13 18:39 | ED.DEP ---
ED Disposition - Plan for ED Patient: Chief Complaint: Chest Pain Instructions: ED Chest Pain NonCardiac Referrals: Mayank Gao MD [Primary Care Provider] -
== END 2017-12-13 18:51 | disposition home or self-care (01) ==
LOC: ED 17:46
PROVIDERS: Emergency Provider Emergency Medicine; Family Provider Family Medicine; PCP Family Medicine
DX: R07.89 Other chest pain (principal); I25.10 Atherosclerotic heart disease of native coronary artery without angina pectoris; I10 Essential (primary) hypertension; E78.00 Pure hypercholesterolemia, unspecified; G47.33 Obstructive sleep apnea (adult) (pediatric); Z79.82 Long term (current) use of aspirin; Z79.899 Other long term (current) drug therapy
CPT/HCPCS: 84484; 93005; 99285; A4216

== ENCOUNTER 2018-03-05 08:58 | Emergency (ER) | payer BC, SELFPAY ==
[2017-12-06 13:52] VITALS: BMI 30.9
[2018-03-05 08:59] VITALS: BP 150/77; PULSE 61; RESP 11; TEMP 36.4; O2SAT 98; BMI 27.6
[2018-03-05 09:06] VITALS: BP 141/69; PULSE 60; RESP 12; O2SAT 98
--- NOTE | 2018-03-05 09:16 | EKG12_ITS ---
Test Reason : CP Blood Pressure : / mmHG Vent. Rate : 061 BPM Atrial Rate : 061 BPM P-R Int : 174 ms QRS Dur : 100 ms QT Int : 410 ms P-R-T Axes : 036 047 049 degrees QTc Int : 412 ms Normal sinus rhythm Normal ECG Confirmed by BERNABE SALAZAR, JORGE ([id number]), writer editor KARTIK LANDRUM ([id number]) on 03/07/2018 11:59:28 AM Referred By: SELENE Confirmed By:JORGE KIDD MD
[2018-03-05 09:45] LABS: Absolute Neutrophil Count 3.5 X10^3/uL (2.0-7.7); Basophil# 0.04 X10^3/uL; Basophil% 0.7 % (0-1); Eosinophil# 0.17 X10^3/uL; Hematocrit 45.1 % (40-54); Hemoglobin 15.7 g/dl (13.0-16.5); Lymphocyte % 26.1 % (19-41); Mean Corp Hgb Conc 34.8 g/gl (32-36); Mean Corpuscular Volume 91.9 fL (80-94); Mean Platelet Vol. 10.2 fl (6.2-12.0); Monocyte# 0.56 X10^3/uL; Monocyte% 9.8 % (0-10); Neutrophil # 3.46 X10^3/uL (2.7-7.7); Neutrophil % 60.2 % (47-70); Platelet Count 243 K/mm3 (150-450); RBC Distribution Width CV 12.9 % (11.6-14.6); RBC Distribution Width SD 42.7 fl (35.1-43.9); Red Blood Count 4.91 M/mm3 (4.6-6.2); White Blood Count 5.7 K/mm3 (4.4-11.0)
[2018-03-05 09:50] LABS: POSITIVE COUNT NO; POSITIVE DIFFERENTIAL NO; POSITIVE MORPHOLOGY NO
[2018-03-05] MEDS: Aspirin 81 MG TAB.CHEW 324 MG PO (09:50)
[2018-03-05 09:58] LABS: Anion Gap 9 (5-15); BUN 16 mg/dL (7-18); BUN/Creat Ratio 16.6 RATIO (10-20); Calcium,Total 9.5 mg/dL (8.5-10.1); Chloride 102 mmol/L (98-107); Creatinine, Serum 0.96 mg/dL (0.70-1.30); EST Glomerular Filtration Rate 84 mL/min (>60); Est Glom Filt Rate - Afr Amer 101 mL/min (>60); Glucose 92 mg/dL (74-106); Potassium 3.6 mmol/L (3.5-5.1); Sodium Level 138 mmol/L (136-145)
[2018-03-05 10:40] VITALS: BP 123/78; PULSE 61; RESP 16; O2SAT 99
--- NOTE | 2018-03-05 10:44 | RAD_ITS ---
STUDY: X-RAY CHEST REASON FOR EXAM: Male, 62 years old. Chest pain. TECHNIQUE: PA and lateral views of the chest. COMPARISON: Comparison is made with prior study dated December 09, 2017. FINDINGS: EKG electrodes are seen. The lungs are clear and expanded. Scattered calcified granulomas. There is no demonstrated pleural abnormality. Normal size heart. Normal mediastinum and alisha. Normal visualized pulmonary arteries. There is atherosclerotic tortuosity of the aortic arch and descending thoracic aorta. There are diffuse degenerative changes of the visualized thoracic spine. Normal visualized ribs, clavicles, and shoulders. There is no demonstrated abnormality of the visualized soft tissue structures of the upper abdomen. RAD/Chest PA and Lateral IMPRESSION: No acute abnormality is seen. Electronically Signed: Randolph Pierre MD at 11:23 EST Tel [phone], Service support ,
--- NOTE | 2018-03-05 11:39 | NURSING ---
DR CALL PAGED
[2018-03-05 12:27] VITALS: BP 135/75; PULSE 70; RESP 16; O2SAT 99
--- NOTE | 2018-03-05 12:45 | ED.DCSUM_ITS ---
- ER Visit Summary Date of Service: 03/05/18 Chief Complaint: Chest pressure History of Present Illness: The patient is a 62 M with a history of coronary disease status post a cardiac stent placement in November of this year. He has been compliant with his Plavix and has not missed any doses. He has been in cardiac therapy and doing well. He states that he was at work this morning and was really exerting himself for several hours, the most exertion that he has done since before his stents. 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 He said he developed slight shortness of breath and chest pressure and therefore had to sit down and rest. It then resolved after a few minutes. It has not recurred. He did not take nitro. He denies recent travel or mobilization. Denies lower extremity pain or swelling. He said that this did not feel like cardiac pain he had before and he felt like he was just overdoing it. He now feels completely back to baseline and has no complaints. Physical Examination: Vitals are within normal limits. He is not in distress. He appears comfortable. Neck is supple. Heart tones are regular and without murmur. Lungs are clear bilaterally. Abdomen is soft and nontender. He has no tenderness along the lower extremity venous system, palpable cords, edema, or other evidence of DVT. He has strong pulses in all extremities. Test Results: Vitals are all within normal limits. EKG is unremarkable. Troponin is negative. CBC and chemistries normal. Chest x-ray unremarkable. Emergency Department Course and Treatment: No clinical evidence of DVT. Strong pulses in both upper extremities. No mediastinal widening on chest x-ray to suggest aortic dissection. His symptoms have completely resolved. It lasted only a few minutes. He certainly has multiple risk factors but has not missed any Plavix and has a drug-eluting stent in place. His EKG is unremarkable and his initial enzymes are negative. I discussed the case with his certified orthotist practice manager, Dr. Stephen. He suggested repeating a cardiac enzyme here and having the patient follow closely as an outpatient if negative. The patient has not had any recurrence of symptoms at all. He looks well and would prefer to go home rather than stay in the hospital as observation. His repeat cardiac enzymes are negative and he is still pain-free. We told him to avoid any exertion until he follows up with cardiology and is cleared. He was discharged in stable condition and will return if he has any symptoms. Treatment Plan: We will up with cardiology Disposition: Home stable condition Impression: Initial encounter chest pain uncertain etiology This note was generated with [employer] dictation software. It may contain incorrect words, spelling, and punctuation that were not noted in review of the chart prior to signing ED Disposition - Plan for ED Patient: Chief Complaint: Chest Pain Instructions: ED Chest Pain O Referrals: Mayank Gao MD [Primary Care Provider] - Additional Instructions: Follow-up with cardiology as soon as possible. Avoid any significant physical activity untill cleared.
--- NOTE | 2018-03-05 13:02 | ED.VISSUMM ---
- ER Visit Summary Date of Service: 03/05/18 Chief Complaint: [] History of Present Illness: The patient is a 62 M [] Physical Examination: [] Test Results: [] Emergency Department Course and Treatment: [] Treatment Plan: [] Disposition: [] Impression: [] This note was generated with [employer] dictation software. It may contain incorrect words, spelling, and punctuation that were not noted in review of the chart prior to signing ED Disposition - Plan for ED Patient: Chief Complaint: Chest Pain Instructions: ED Chest Pain Atypical Unkn Cause Referrals: Mayank Gao MD [Primary Care Provider] - Additional Instructions: Follow-up with cardiology as soon as possible. Avoid any significant physical activity untill cleared.
[2018-03-05 13:06] VITALS: BP 123/74; PULSE 69; RESP 18; O2SAT 99
== END 2018-03-05 13:08 | disposition home or self-care (01) ==
LOC: ED 09:29
PROVIDERS: Emergency Provider Emergency Medicine; Family Provider Family Medicine; PCP Family Medicine
DX: R07.89 Other chest pain (principal); R06.00 Dyspnea, unspecified; R11.0 Nausea; I10 Essential (primary) hypertension; E78.00 Pure hypercholesterolemia, unspecified; I25.10 Atherosclerotic heart disease of native coronary artery without angina pectoris; Z95.5 Presence of coronary angioplasty implant and graft; Z79.02 Long term (current) use of antithrombotics/antiplatelets; Z79.82 Long term (current) use of aspirin; Z79.899 Other long term (current) drug therapy
CPT/HCPCS: 36415; 71046; 80048; 84484; 85025; 93005; 99285; A4216

== ENCOUNTER 2018-08-05 12:06 | Observation (INO) | payer BC, SELFPAY ==
[2017-12-06 13:52] VITALS: BMI 30.9
[2018-08-05] VITALS (12 sets, daily range): BP systolic 122–142; BP diastolic 70–87; PULSE 58–69; RESP 14–18; TEMP 36.3–36.9; O2SAT 95–100; BMI 27.8; BMI 27.3
--- NOTE | 2018-08-05 12:20 | EKG12_ITS ---
Test Reason : CP Blood Pressure : / mmHG Vent. Rate : 067 BPM Atrial Rate : 067 BPM P-R Int : 182 ms QRS Dur : 100 ms QT Int : 402 ms P-R-T Axes : 033 031 039 degrees QTc Int : 424 ms Normal sinus rhythm Normal ECG Confirmed by KEREN SALAZAR, MOODY ([id number]), assistant production editor NELLIE KOHLER ([id number]) on 08/14/2018 8:57:38 AM Referred By: Nicol Tavares Confirmed By:MOODY VELIZ MD
--- NOTE | 2018-08-05 12:30 | RAD_ITS ---
STUDY: X-RAY CHEST REASON FOR EXAM: Male, 63 years old. Chest pain TECHNIQUE: Single frontal view of the chest. COMPARISON: 03/05/2018 FINDINGS: The lungs are clear and expanded. There is no demonstrated pleural abnormality. Normal size heart. Normal mediastinum and alisha. Normal visualized pulmonary arteries. There is atherosclerotic tortuosity of the aortic arch and descending thoracic aorta. Normal visualized thoracic spine. Normal visualized ribs, clavicles, and shoulders. There is no demonstrated abnormality of the visualized soft tissue structures of the upper abdomen. RAD/Chest 1 View (Portable) IMPRESSION: No acute pulmonary findings. Electronically Signed: Mayank Castillo MD at 12:45 EDT Tel , Service support ,
[2018-08-05] MEDS: 0.9% Normal Saline 1,000 ML 150 ML IV (12:37)
[2018-08-05] MEDS: Nitroglycerin Oint 1 INCH PACKET TRANSDERM. (12:37)
[2018-08-05 12:40] LABS: Absolute Lymphocyte Count 1.54 X10^3/ul (0.83-4.51); Absolute Neutrophil Count 3.6 X10^3/uL (2.0-7.7); Basophil# 0.03 X10^3/uL; Basophil% 0.5 % (0-1); Eosinophil# 0.12 X10^3/uL; Eosinophils% 2.1 % (0-5); Hematocrit 42.6 % (40-54); Lymphocyte # 1.54 X10^3/ul (4.0); Lymphocyte % 26.8 % (19-41); Mean Corp Hgb Conc 35.2 g/gl (32-36); Mean Corpuscular Hgb 32.4 pg (27.0-32.0); Mean Platelet Vol. 9.9 fl (6.2-12.0); Monocyte# 0.41 X10^3/uL; Monocyte% 7.1 % (0-10); Neutrophil # 3.64 X10^3/uL (2.7-7.7); Neutrophil % 63.5 % (47-70); Platelet Count 289 K/mm3 (150-450); RBC Distribution Width CV 13.4 % (11.6-14.6); RBC Distribution Width SD 44.6 fl (35.1-43.9); Red Blood Count 4.63 M/mm3 (4.6-6.2); White Blood Count 5.7 K/mm3 (4.4-11.0)
--- NOTE | 2018-08-05 12:43 | ED.RN ---
PT REPORTS HE HAS NOT HAD ANY CIALIS IN 48 HOURS. 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
[2018-08-05 12:48] LABS: POSITIVE COUNT NO; POSITIVE DIFFERENTIAL NO; POSITIVE MORPHOLOGY NO
[2018-08-05 12:53] LABS: Anion Gap 4 (5-15); BUN 14 mg/dL (7-18); BUN/Creat Ratio 13.9 RATIO (10-20); Calcium,Total 9.2 mg/dL (8.5-10.1); Chloride 103 mmol/L (98-107); Creatinine, Serum 1.01 mg/dL (0.70-1.30); EST Glomerular Filtration Rate 79 mL/min (>60); Est Glom Filt Rate - Afr Amer 96 mL/min (>60); Estimated Creatinine Clearance 73.89 ml/min; Glucose 91 mg/dL (74-106); Potassium 3.6 mmol/L (3.5-5.1); Sodium Level 136 mmol/L (136-145)
--- NOTE | 2018-08-05 13:18 | PCM.HP.STD ---
Problem List (1) Chest pain Status: Acute Qualifiers: Chest pain type: unspecified Qualified Code(s): R07.9 - Chest pain, unspecified (2) HTN (hypertension) Status: Chronic Qualifiers: Hypertension type: essential hypertension Qualified Code(s): I10 - Essential (primary) hypertension (3) HLD (hyperlipidemia) Status: Chronic Qualifiers: Hyperlipidemia type: pure hypercholesterolemia Qualified Code(s): E78.00 - Pure hypercholesterolemia, unspecified; E78.0 - Pure hypercholesterolemia (4) EMMANUEL (obstructive sleep apnea) Status: Chronic (5) Stented coronary artery Status: Chronic (6) Arteriosclerosis of coronary artery Status: Chronic Comment: Stent to per Dr. Stephen @ [facility] History of Present Illness Date of Admission: 08/05/18 Chief Complaint: Chest pain The patient is a 63 y/o M w/ PMHx: CAD s/p PCI to OM 11/2017, HTN, HLD, GERD, Hypothyroidism, EMMANUEL on CPAP q HS, Chronic back pain who presents to the [facility] ED on 08/05/18 with history of onset while at work 9-10 am lightheadedness followed by episode at ~ 9:50 am of sternal chest tightness without any radiation with general malaise but no specific nausea or emesis associated nor shortness of breath or diaphoresis described as a 2-3 out of 10 in severity with resolution to 0-1 out of 10 with self administration of sublingual nitroglycerin. He also noted that following nitroglycerin he did eat some of a sandwich and had complete resolution of discomfort following this. Work-up in the ED included T 98.5, heart rate 68, BP 142/81, respiratory rate 14, 99% on room air, CBC with RBC 5.7, hemoglobin 15, platelets 29 without shift, BMP unremarkable, troponin less than 0.015, chest x-ray with no acute cardiopulmonary findings, EKG w/ SR w/ no acute evidence of ischemia. In the ED patient administered normal saline and Nitro-Bid. Past Medical History Past Medical History (Chronic Problems): Chronic Problems (Last Updated 12/06/17 @ 13:29 by Vanessa Kimble) HTN (hypertension) (Chronic) HLD (hyperlipidemia) (Chronic) EMMANUEL (obstructive sleep apnea) (Chronic) Stented coronary artery (Chronic 12/06/17) Arteriosclerosis of coronary artery (Chronic 12/06/17) Stent to OM per Dr. Stephen @ [facility] Medical History: Medical History (Last Updated 12/06/17 @ 13:29 by Vanessa Kimble) Arteriosclerosis of coronary artery (Chronic) Onset Date: 12/06/17 I25.10 Stent to OM per Dr. Stephen @ [facility] Allergies adhesive tape Adverse Reaction (Verified 08/05/18 12:22) Rash fenofibrate [From Tricor] Adverse Reaction (Verified 08/05/18 12:22) Other made me mean TRICOR BY BRAND NAME, CAN TAKE GENERIC FENOBIBRATE Home Medications: Ambulatory Orders Medication Instructions Recorded Levothyroxine [Synthroid] 75 mcg PO DAILY 10/02/17 Tadalafil [Cialis] 20 mg PO DAILY PRN 10/02/17 Glucosamine/Chondr Claudio A Sod [Sv 2 tab PO DAILY 12/05/17 Glucosamine-Chondroit Cplt] Nitroglycerin [Nitrostat] 0.4 mg SUBLINGUAL Q5M PRN 12/05/17 Aspirin [Aspirin EC] 81 mg PO DAILY 08/05/18 Cholecalciferol (Vitamin D3) 5,000 unit PO BID 08/05/18 [Vitamin D3] Clopidogrel Bisulfate [Clopidogrel] 75 mg PO DAILY 08/05/18 Diltiazem HCl [Cartia Xt] 300 mg PO DAILY 08/05/18 Meloxicam [Mobic] 15 mg PO PRN PRN 08/05/18 Pantoprazole Sodium [Protonix] 40 mg PO DAILY 08/05/18 Valsartan/Hydrochlorothiazide 1 tab PO DAILY 08/05/18 [Valsartan-Hctz 160-25 mg Tab] Surgical History: Surgical History (Last Updated 12/09/17 @ 16:50 by Vanessa Kimble) Stented coronary artery (Chronic) Onset Date: 12/06/17 Z95.5 Surgical History: - - PCI x1, left inguinal hernia repair, umbilical hernia repair x2, lumbar back surgery. Psychiatric History: No pertinent psych hx Lives: Spouse/ Significant Other Smoking Status: Never smoker Tobacco Use: Non-smoker Alcohol: Rare Drugs: None - *Family History Maternal History Items: - - Patient notes a maternal family history of hypertension and heart disease. Paternal History Items: - - Patient denies any marked paternal history including heart disease, diabetes, cancer. Review of Systems Constitutional: Reports: Malaise, Weakness, Fatigue. Denies: Chills, Fever, Weight Change HEENT: Denies: Head Aches, Sinus Congestion, Sinus Drainage Cardiovascular: Reports: Chest Pain, Chest Tightness, Light Headedness. Denies: Chest Pressure, Edema, Heaviness, Orthopnea, Palpitations, Syncope Respiratory: Denies: Cough, Shortness of Breath, Shortness of breath at rest, Shortness of breath upon exertion, Sputum production Gastrointestinal: Denies: Abdominal Pain, Nausea, Vomiting Genitourinary: Denies: Dysuria Musculoskeletal: Denies: Joint Pain, Joint Tenderness Skin: Denies: Rash, Wounds Neurological: Denies: Numbness, Tingling, Focal weakness Psychiatric: Denies: Anxiety, Depression, Homicidal Ideations, Suicidal Ideations Hematologic/ Lymphatic: Reports: Easy Bruising, Easy Bleeding VTE Information - Inpt Only VTE Present on Admission: No VTE Mechan Device Prophylaxis: SCD's VTE Pharm Prophylaxis ordered?: Yes Patient Problems: Active and Suspected Problems (Last Updated 12/06/17 @ 13:29 by Vanessa Kimble) Chest pain (Acute) Subjective: Patient seated upright in ED, notes complete resolution of chest discomfort ongoing. Nitro-Bid in place. Objective: Physical Examination: General: awake, alert, oriented x 3 and cooperative, seated upright in the ED bed in no apparent distress, chest pain remains resolved. Skin: normal color, turgor, no icterus, cyanosis. HEENT: AT/NC, EOMI, PERRLA, MMM, no carotid bruits or JVD noted. Lungs: CTA bilaterally, moderate effort, mild decrease BL bases, no rales, ronchi or wheezing. Heart: Regular rate and rhythm; no gallop, rub audible. Abdomen: soft, NTTP, ND, normal BS, no HSM. Extremities: no cyanosis, clubbing, or edema. Neurological: patient awake, alert, oriented x 3; cognitive function intact; pupils equally reactive to light and accomodation; cranial nerves II-XII grossly normal, moving all 4 extremities, no focal deficits, strength preserved. Psychiatric: affect appears normal, no acute evidence of depressive or anxiety feelings. - Physical Exam Vital Signs Temp Pulse Resp BP Pulse Ox 98.5 F 65 14 133/84 H 98 08/05/18 12:07 08/05/18 12:37 08/05/18 12:07 08/05/18 12:37 08/05/18 12:36 Oxygen Flow Rate (L/min) 2 Oxygen Delivery Method Nasal Cannula Weight: 188 lb 14.978 oz Body Mass Index (BMI) 27.8 Laboratory Tests Past 24 Hrs 08/05/18 08/05/18 12:15 12:15 WBC 5.7 RBC 4.63 Hgb 15.0 Hct 42.6 MCV 92.0 MCH 32.4 H MCHC 35.2 RDW 13.4 RDW Differential 44.6 H Plt Count 289 MPV 9.9 Immature Gran % (Auto) 0.000 Neut % (Auto) 63.5 Lymph % (Auto) 26.8 [place] % (Auto) 7.1 Eos % (Auto) 2.1 Baso % (Auto) 0.5 Absolute Neuts (auto) 3.6 Absolute Lymphs (auto) 1.54 Total Counted Not Reportable Sodium 136 Potassium 3.6 Chloride 103 Carbon Dioxide 29.0 Anion Gap 4 L BUN 14 Creatinine 1.01 Estim Creat Clear Calc 73.89 Est GFR (MDRD) Af Amer 96 Est GFR (MDRD) Non-Af 79 BUN/Creatinine Ratio 13.9 Glucose 91 Calcium 9.2 Troponin I < 0.015 Assessment/Plan All Active Problems (Last Updated 12/06/17 @ 13:29 by Vanessa Kimble) Chest pain (Acute) The patient is a 63 y/o M w/ PMHx: CAD s/p PCI to OM 11/2017, HTN, HLD, GERD, Hypothyroidism, EMMANUEL on CPAP q HS, Chronic back pain who presents to the [facility] ED on 08/05/18 with history of onset while at work 9-10 am lightheadedness followed by episode at ~ 9:50 am of sternal chest tightness. (1) Chest Pain: EKG in ED with no acute evidence of ischemia, CXR w/ no acute cardiopulmonary findings, initial trop <0.015. Will admit to PCU, place on a monitored bed to assure no acute myocardial infarction with serial cardiac enzymes and EKGs. Patient is able to perform exercise and does not have LBBB or V-pacing but does have history of PCI/ST-T changes with unclear wall motion abnormality at rest thus will proceed with AM nuclear stress test. ASA, NG, morphine. FLP in AM. Mag pending. (2) CAD: s/p 11/[address] Stephen, s/p angioplasty and drug-eluting stenting of the ostial proximal OM #2 with no encroachment upon the main AV circumflex, continue asa, plavix, on diltiazem, statin therapy. (3) Hypertension: Continue home regimen including diltiazem, valsartan, hydrochlorothiazide, PRN hydralazine. (4) Hyperlipidemia: Continue home statin regimen. AM FLP. (5) Hypothyroidism: Continue home synthroid regimen. (6) GERD: PPI. (7) EMMANUEL: CPAP q HS. (8) DVT Prophylaxis: SCDs, lovenox. Code Visit OBSV E&M: 59584 Initial observation care L3
--- NOTE | 2018-08-05 13:19 | ED.VISSUMM ---
- ER Visit Summary Date of Service: 08/05/18 Chief Complaint: [Chest pain] History of Present Illness: The patient is a 63 M [presents the emergency department complaint chest discomfort that started around 9:30 AM while at work. Patient states he was just doing some light activity when just was not feeling well. Patient states he felt lightheaded and somewhat nauseated. Patient had this pressure in his chest that did not radiate anywhere. Patient took a nitro and symptoms mostly relieve his discomfort. Patient states that typically with his gastroesophageal reflux typically the nitro does nothing for it. Patient does have a history of coronary artery disease with cardiac stent placement in November 2017. Patient with history of hypertension, high cholesterol, and hypothyroidism. Physical Examination: [HEENT-PERRLA, EOMI. Cranial nerves II through XII grossly intact. TMs clear. Mucous membranes moist. No adenopathy. Cardiovascular-regular rate and rhythm without murmur or ectopy Lungs-clear to auscultation, chest wall stable without crepitus or subcu emphysema Abdomen-normoactive bowel sounds, soft, nontender, no rebound or rigidity, no peritoneal signs. Extremities-intact ?4, normal range of motion, normal pulses, atraumatic] Test Results: [EKG obtained on arrival shows sinus rhythm with a ventricular rate of 67 bpm with no acute I segment changes. CBC with differential was normal. Chemistries unremarkable. Troponin was less than 0.015. Chest x-ray showed nothing acute.] Emergency Department Course and Treatment: [Patient had an IV line established and was given normal saline. Patient had already taken his Plavix today and he took aspirin last evening. No further aspirin was given.] Treatment Plan: [Admit for further work-up and evaluation of his chest pain] Disposition: [Admit ] Impression: [Chest pain-rule out acute currently syndrome] This note was generated with [employer] dictation software. It may contain incorrect words, spelling, and punctuation that were not noted in review of the chart prior to signing ED Disposition - Plan for ED Patient: Referrals: Mayank Gao MD [Primary Care Provider] -
--- NOTE | 2018-08-05 13:22 | ED.DCSUM_ITS ---
- ER Visit Summary Date of Service: 08/05/18 Chief Complaint: [Chest pain] History of Present Illness: The patient is a 63 M [presents the emergency department complaint chest discomfort that started around 9:30 AM while at work. Patient states he was just doing some light activity when just was not feeling well. Patient states he felt lightheaded and somewhat nauseated. Patient had this pressure in his chest that did not radiate anywhere. Patient took a nitro and symptoms mostly relieve his discomfort. Patient states that typically with his gastroesophageal reflux typically the nitro does nothing for it. Patient does have a history of coronary artery disease with cardiac stent placement in November 2017. Patient with history of hypertension, high cholesterol, and hypothyroidism. Physical Examination: [HEENT-PERRLA, EOMI. Cranial nerves II through XII grossly intact. TMs clear. Mucous membranes moist. No adenopathy. Cardiovascular-regular rate and rhythm without murmur or ectopy Lungs-clear to auscultation, chest wall stable without crepitus or subcu emphys anca Abdomen-normoactive bowel sounds, soft, nontender, no rebound or rigidity, no peritoneal signs. Extremities-intact ?4, normal range of motion, normal pulses, atraumatic] Test Results: [EKG obtained on arrival shows sinus rhythm with a ventricular rate of 67 bpm with no acute I segment changes. CBC with differential was normal. Chemistries unremarkable. Troponin was less than 0.015. Chest x-ray showed nothing acute.] Emergency Department Course and Treatment: [Patient had an IV line established and was given normal saline. Patient had already taken his Plavix today and he took aspirin last evening. No further aspirin was given.] Treatment Plan: [Admit for further work-up and evaluation of his chest pain] Disposition: [Admit ] Impression: [Chest pain-rule out acute currently syndrome] This note was generated with [employer] dictation software. It may contain incorrect words, spelling, and punctuation that were not noted in review of the chart prior to signing ED Disposition - Plan for ED Patient: Referrals: Mayank Gao MD [Primary Care Provider] -
--- NOTE | 2018-08-05 13:27 | HP.PCM_ITS ---
Problem List (1) Chest pain Status: Acute Qualifiers: Chest pain type: unspecified Qualified Code(s): R07.9 - Chest pain, unspecified (2) HTN (hypertension) Status: Chronic Qualifiers: Hypertension type: essential hypertension Qualified Code(s): I10 - Essential (primary) hypertension (3) HLD (hyperlipidemia) Status: Chronic Qualifiers: Hyperlipidemia type: pure hypercholesterolemia Qualified Code(s): E78.00 - Pure hypercholesterolemia, unspecified; E78.0 - Pure hypercholesterolemia (4) EMMANUEL (obstructive sleep apnea) Status: Chronic (5) Stented coronary artery Status: Chronic (6) Arteriosclerosis of coronary artery Status: Chronic Comment: Stent to per Dr. Stephen @ [facility] History of Present Illness Date of Admission: 08/05/18 Chief Complaint: Chest pain The patient is a 63 y/o M w/ PMHx: CAD s/p PCI to OM 11/2017, HTN, HLD, GERD, Hypothyroidism, EMMANUEL on CPAP q HS, Chronic back pain who presents to the [facility] ED on 08/05/18 with history of onset while at work 9-10 am lightheadedness followed by episode at ~ 9:50 am of sternal chest tightness without any radiation with general malaise but no specific nausea or emesis associated nor shortness of breath or diaphoresis described as a 2-3 out of 10 in severity with resolution to 0-1 out of 10 with self administration of sublingual nitroglycerin. He also noted that following nitroglycerin he did eat some of a sandwich and had complete resolution of discomfort following this. Work-up in the ED included T 98.5, heart rate 68, BP 142/81, respiratory rate 14, 99% on room air, CBC with RBC 5.7, hemoglobin 15, platelets 29 without shift, BMP unremarkable, troponin less than 0.015, chest x-ray with no acute cardiopulmonary findings, EKG w/ SR w/ no acute evidence of ischemia. In the ED patient administered normal saline and Nitro-Bid. Past Medical History Past Medical History (Chronic Problems): Chronic Problems (Last Updated 12/06/17 @ 13:29 by Vanessa Kimble) HTN (hypertension) (Chronic) HLD (hyperlipidemia) (Chronic) EMMANUEL (obstructive sleep apnea) (Chronic) Stented coronary artery (Chronic 12/06/17) Arteriosclerosis of coronary artery (Chronic 12/06/17) Stent to OM per Dr. Stephen @ [facility] Medical History: Medical History (Last Updated 12/06/17 @ 13:29 by Vanessa Kimble) Arteriosclerosis of coronary artery (Chronic) Onset Date: 12/06/17 I25.10 Stent to OM per Dr. Stephen @ [facility] Allergies adhesive tape Adverse Reaction (Verified 08/05/18 12:22) Rash fenofibrate [From Tricor] Adverse Reaction (Verified 08/05/18 12:22) Other made me mean TRICOR BY BRAND NAME, CAN TAKE GENERIC FENOBIBRATE Home Medications: Ambulatory Orders Medication Instructions Recorded Levothyroxine [Synthroid] 75 mcg PO DAILY 10/02/17 Tadalafil [Cialis] 20 mg PO DAILY PRN 10/02/17 Glucosamine/Chondr Claudio A Sod [Sv 2 tab PO DAILY 12/05/17 Glucosamine-Chondroit Cplt] Nitroglycerin [Nitrostat] 0.4 mg SUBLINGUAL Q5M PRN 12/05/17 Aspirin [Aspirin EC] 81 mg PO DAILY 08/05/18 Cholecalciferol (Vitamin D3) 5,000 unit PO BID 08/05/18 [Vitamin D3] Clopidogrel Bisulfate [Clopidogrel] 75 mg PO DAILY 08/05/18 Diltiazem HCl [Cartia Xt] 300 mg PO DAILY 08/05/18 Meloxicam [Mobic] 15 mg PO PRN PRN 08/05/18 Pantoprazole Sodium [Protonix] 40 mg PO DAILY 08/05/18 Valsartan/Hydrochlorothiazide 1 tab PO DAILY 08/05/18 [Valsartan-Hctz 160-25 mg Tab] Surgical History: Surgical History (Last Updated 12/09/17 @ 16:50 by Vanessa Kimble) Stented coronary artery (Chronic) Onset Date: 12/06/17 Z95.5 Surgical History: - - PCI x1, left inguinal hernia repair, umbilical hernia repair x2, lumbar back surgery. Psychiatric History: No pertinent psych hx Lives: Spouse/ Significant Other Smoking Status: Never smoker Tobacco Use: Non-smoker Alcohol: Rare Drugs: None - *Family History Maternal History Items: - - Patient notes a maternal family history of hypertension and heart disease. Paternal History Items: - - Patient denies any marked paternal history including heart disease, diabetes, cancer. Review of Systems Constitutional: Reports: Malaise, Weakness, Fatigue. Denies: Chills, Fever, Weight Change HEENT: Denies: Head Aches, Sinus Congestion, Sinus Drainage Cardiovascular: Reports: Chest Pain, Chest Tightness, Light Headedness. Denies: Chest Pressure, Edema, Heaviness, Orthopnea, Palpitations, Syncope Respiratory: Denies: Cough, Shortness of Breath, Shortness of breath at rest, Shortness of breath upon exertion, Sputum production Gastrointestinal: Denies: Abdominal Pain, Nausea, Vomiting Genitourinary: Denies: Dysuria Musculoskeletal: Denies: Joint Pain, Joint Tenderness Skin: Denies: Rash, Wounds Neurological: Denies: Numbness, Tingling, Focal weakness Psychiatric: Denies: Anxiety, Depression, Homicidal Ideations, Suicidal Ideat ions Hematologic/ Lymphatic: Reports: Easy Bruising, Easy Bleeding VTE Information - Inpt Only VTE Present on Admission: No VTE Mechan Device Prophylaxis: SCD's VTE Pharm Prophylaxis ordered?: Yes Patient Problems: Active and Suspected Problems (Last Updated 12/06/17 @ 13:29 by Vanessa Kimble) Chest pain (Acute) Subjective: Patient seated upright in ED, notes complete resolution of chest discomfort ongoing. Nitro-Bid in place. Objective: Physical Examination: General: awake, alert, oriented x 3 and cooperative, seated upright in the ED bed in no apparent distress, chest pain remains resolved. Skin: normal color, turgor, no icterus, cyanosis. HEENT: AT/NC, EOMI, PERRLA, MMM, no carotid bruits or JVD noted. Lungs: CTA bilaterally, moderate effort, mild decrease BL bases, no rales, ronchi or wheezing. Heart: Regular rate and rhythm; no gallop, rub audible. Abdomen: soft, NTTP, ND, normal BS, no HSM. Extremities: no cyanosis, clubbing, or edema. Neurological: patient awake, alert, oriented x 3; cognitive function intact; pupils equally reactive to light and accomodation; cranial nerves II-XII grossly normal, moving all 4 extremities, no focal deficits, strength preserved. Psychiatric: affect appears normal, no acute evidence of depressive or anxiety feelings. - Physical Exam Vital Signs Temp Pulse Resp BP Pulse Ox 98.5 F 65 14 133/84 H 98 08/05/18 12:07 08/05/18 12:37 04/23/19 12:07 08/05/18 12:37 08/05/18 12:36 Oxygen Flow Rate (L/min) 2 Oxygen Delivery Method Nasal Cannula Weight: 188 lb 14.978 oz Body Mass Index (BMI) 27.8 Laboratory Tests Past 24 Hrs 08/05/18 08/05/18 12:15 12:15 WBC 5.7 RBC 4.63 Hgb 15.0 Hct 42.6 MCV 92.0 MCH 32.4 H MCHC 35.2 RDW 13.4 RDW Differential 44.6 H Plt Count 289 MPV 9.9 Immature Gran % (Auto) 0.000 Neut % (Auto) 63.5 Lymph % (Auto) 26.8 [place] % (Auto) 7.1 Eos % (Auto) 2.1 Baso % (Auto) 0.5 Absolute Neuts (auto) 3.6 Absolute Lymphs (auto) 1.54 Total Counted Not Reportable Sodium 136 Potassium 3.6 Chloride 103 Carbon Dioxide 29.0 Anion Gap 4 L BUN 14 Creatinine 1.01 Estim Creat Clear Calc 73.89 Est GFR (MDRD) Af Amer 96 Est GFR (MDRD) Non-Af 79 BUN/Creatinine Ratio 13.9 Glucose 91 Calcium 9.2 Troponin I < 0.015 Assessment/Plan All Active Problems (Last Updated 12/06/17 @ 13:29 by Vanessa Kimble) Chest pain (Acute) The patient is a 63 y/o M w/ PMHx: CAD s/p PCI to OM 11/2017, HTN, HLD, GERD, Hypothyroidism, EMMANUEL on CPAP q HS, Chronic back pain who presents to the [facility] ED on 08/05/18 with history of onset while at work 9-10 am lightheadedness followed by episode at ~ 9:50 am of sternal chest tightness. (1) Chest Pain: EKG in ED with no acute evidence of ischemia, CXR w/ no acute cardiopulmonary findings, initial trop <0.015. Will admit to PCU, place on a monitored bed to assure no acute myocardial infarction with serial cardiac enzymes and EKGs. Patient is able to perform exercise and does not have LBBB or V-pacing but does have history of PCI/ST-T changes with unclear wall motion abnormality at rest thus will proceed with AM nuclear stress test. ASA, NG, morphine. FLP in AM. Mag pending. (2) CAD: s/p 11/[address] Stephen, s/p angioplasty and drug-eluting stenting of the ostial proximal OM #2 with no encroachment upon the main AV circumflex, continue asa, plavix, on diltiazem, statin therapy. (3) Hypertension: Continue home regimen including diltiazem, valsartan, hydrochlorothiazide, PRN hydralazine. (4) Hyperlipidemia: Continue home statin regimen. AM FLP. (5) Hypothyroidism: Continue home synthroid regimen. (6) GERD: PPI. (7) EMMANUEL: CPAP q HS. (8) DVT Prophylaxis: SCDs, lovenox. Code Visit OBSV E&M: [id number] Initial observation care L3
--- NOTE | 2018-08-05 13:52 | CASEMGMT ---
RN CM Assessment Introduced role of RN CM to patient, patient and son at bedside.? Patient is alert, oriented and able?to participate in RN CM Assessment. ?Care providers, pharmacy, and demographics verified. Presentation: CP Admit Dx: CP Re-Admit: No Barriers/Issues: None PCP: Mayank Gao Specialists: Cardio- Dr Lozada, Puln- Dr Lechuga [facility]: [place] [facility] Benefit: Yes? LNOK: Stacey Ott LW/HPOA: Yes, HPOA- Stacey Ott Living Arrangements:? Lives with in a [place] home, 2 steps to enter ADL?s: Independent with ambulation and ADL's Transportation: Patient drives, to transport on DC DME: CPAP HHC: None SNF: None Goal: Home and back to work DC PLAN: Home with no anticipated needs identified at this time. Don Patiño RNCM
--- NOTE | 2018-08-05 14:07 | EKG12_ITS ---
Test Reason : CP ADMIT Blood Pressure : / mmHG Vent. Rate : 055 BPM Atrial Rate : 055 BPM P-R Int : 194 ms QRS Dur : 098 ms QT Int : 436 ms P-R-T Axes : 033 025 036 degrees QTc Int : 417 ms Sinus bradycardia Otherwise normal ECG Confirmed by KEREN SALAZAR, MOODY ([id number]), restaurant expeditor NELLIE KOHLER ([id number]) on 08/11/2018 12:22:35 PM Referred By: Nicol Tavares Confirmed By:MOODY VELIZ MD
[2018-08-05 14:20] LABS: Magnesium 2.1 mg/dL (1.6-2.6)
[2018-08-05] MEDS: Pantoprazole Sodium 40 MG Tablet PO (21:57)
[2018-08-05] MEDS: 0.9% Normal Saline 1,000 ML 100 ML IV (22:13)
[2018-08-05] MEDS: Acetaminophen 325 MG Tablet 650 MG PO (22:21)
[2018-08-06] VITALS (7 sets, daily range): BP systolic 127–140; BP diastolic 71–78; PULSE 55–60; RESP 16–18; TEMP 36.4–37; O2SAT 97–99
[2018-08-06 05:35] LABS: Hematocrit 41.5 % (40-54); Hemoglobin 14.1 g/dl (13.0-16.5); Mean Corpuscular Hgb 31.7 pg (27.0-32.0); Mean Corpuscular Volume 93.3 fL (80-94); Mean Platelet Vol. 9.7 fl (6.2-12.0); Platelet Count 258 K/mm3 (150-450); RBC Distribution Width CV 13.4 % (11.6-14.6); RBC Distribution Width SD 45.8 fl (35.1-43.9); Red Blood Count 4.45 M/mm3 (4.6-6.2)
[2018-08-06 05:38] LABS: International Normalized Ratio 1.2; Partial Thromboplast Time 29.6 Seconds (24.1-36.2)
[2018-08-06 05:46] LABS: Scan Indicated on CBC? Y/N NO
--- NOTE | 2018-08-06 05:55 | EKG12_ITS ---
Test Reason : MORNING EKG Blood Pressure : / mmHG Vent. Rate : 061 BPM Atrial Rate : 061 BPM P-R Int : 176 ms QRS Dur : 098 ms QT Int : 418 ms P-R-T Axes : 052 063 062 degrees QTc Int : 420 ms Normal sinus rhythm Normal ECG Confirmed by KEREN SALAZAR, MOODY ([id number]), photography editor NELLIE KOHLER ([id number]) on 08/11/2018 12:31:04 PM Referred By: Nicol Tavares Confirmed By:MOODY VELIZ MD
[2018-08-06] MEDS: Clopidogrel Bisulfate 75 MG Tablet PO (06:04)
[2018-08-06] MEDS: Aspirin 81 MG TAB.CHEW PO (06:04)
[2018-08-06] MEDS: Levothyroxine 75 MCG Tablet PO (06:04)
[2018-08-06] MEDS: Losartan Potassium 50 MG Tablet PO (06:05)
[2018-08-06] MEDS: dilTIAZem CD 300 MG Capsule PO (06:14)
[2018-08-06 06:25] LABS: ALB/GLOB Ratio 1.3 RATIO (0.9-2.4); AST(SGOT) 21 U/L (15-37); Alanine Aminotransfer ALT/SGPT 27 U/L (16-61); Albumin, Serum 3.6 g/dL (3.2-5.0); Alkaline Phosphatase 59 U/L (45-117); Anion Gap 6 (5-15); BUN 12 mg/dL (7-18); BUN/Creat Ratio 12.8 RATIO (10-20); Calcium,Total 8.5 mg/dL (8.5-10.1); Chloride 107 mmol/L (98-107); Cholesterol 200 mg/dL (200); Creatinine, Serum 0.94 mg/dL (0.70-1.30); EST Glomerular Filtration Rate 86 mL/min (>60); Est Glom Filt Rate - Afr Amer 104 mL/min (>60); Estimated Creatinine Clearance 76.81 ml/min; Globulin 2.8 g/dL (2.2-4.2); Glucose 86 mg/dL (74-106); High Density Lipoprotein 29 mg/dL; Potassium 3.7 mmol/L (3.5-5.1); Protein, Total 6.4 g/dL (6.4-8.2); Sodium Level 139 mmol/L (136-145); Triglycerides 197 mg/dL; Very Low Density Lipoprotein 39 mg/dL (5-40)
[2018-08-06] MEDS: Pantoprazole Sodium 40 MG Tablet PO (08:40)
[2018-08-06] MEDS: 0.9% Normal Saline 1,000 ML 100 ML IV (08:41)
--- NOTE | 2018-08-06 10:03 | STRESSREP ---
Stress Test Report Date: 08-06-18 Procedure: Exercise tolerance test/imaging study Indications: Chest pain; CAD; PCI Consent: Per the patient Procedure: The patient exercised on a Nico protocol for 12 minutes completing Stage IV achieving a peak heart rate of 141 bpm (90 % predicted maximal heart rate) with a peak blood pressure 192/70 mmHg and a peak MET capacity of 13 METs. The baseline ECG demonstrated normal sinus rhythm. The peak exercise ECG demonstrated no obvious ECG changes. There were no cardiac dysrhythmias pretest, during exercise, or recovery. The functional capacity was considered good. There was no complaint of chest discomfort during exercise or recovery. The examination was discontinued secondary to dyspnea. Impression: 1. Technically adequate (percent predicted maximal heart rate greater than 85%) exercise tolerance test 2. Peak exercise ECG with no obvious ECG changes 3. There were no cardiac dysrhythmias pretest, during exercise, or recovery 4. Nuclear images pending Myocardial perfusion imaging study: Technique: The patient was injected with 11.3 mCi of technetium 99m Cardiolite and subsequently rest SPECT Cardiolite nuclear imaging was obtained in the horizontal long, vertical long, and short axis views. The patient exercised on a Nico protocol for 12 minutes completing Stage IV achieving a peak heart rate of 141 bpm (90 % predicted maximal heart rate) with a peak blood pressure 192/70 mmHg and a peak MET capacity of 13 METs. The patient was injected with 32.9 mCi of technetium 99m Cardiolite and subsequently stress SPECT Cardiolite nuclear imaging was obtained in the horizontal long, vertical long, and short axis views. A gated Cardiolite study at peak stress was obtained. Interpretation: Rest and stress SPECT Cardiolite nuclear imaging status post realignment, normalization, and attenuation correction, demonstrates the appearance of relative uniform tracer uptake and myocardial perfusion appearing within normal limits. There is end systolic thickening and brightening. The gated Cardiolite study demonstrates myocardial thickening and inward wall motion. The reported LVEF is 62 %. Impression: 1. Rest and stress SPECT Cardiolite nuclear imaging demonstrate relative uniform tracer uptake and myocardial perfusion appearing within normal limits. 2. The gated Cardiolite study reports an LVEF of 62 %. This note was generated with [employer]ation software. It may contain incorrect words, spelling, and punctuation that were not noted in checking the note before signing.
--- NOTE | 2018-08-06 11:25 | PCM.DC ---
- Discharge Diagnoses Current Active Problems: Current Active and Chronic Problems (Last Updated 12/06/17 @ 13:29 by Vanessa Kimble) Chest pain (Acute) HTN (hypertension) (Chronic) HLD (hyperlipidemia) (Chronic) EMMANUEL (obstructive sleep apnea) (Chronic) You will use the following diet at home:: Cardiac Your food should be the consistency of: Regular Your liquids should be the consistency of: Regular/Thin Discharge Activity: Return to Normal Activity Allergies/Adverse Reactions: Allergies adhesive tape Adverse Reaction (Verified 08/05/18 12:22) Rash fenofibrate [From T[employer]] Adverse Reaction (Verified 08/05/18 12:22) Other made me mean TRICOR BY BRAND NAME, CAN TAKE GENERIC FENOBIBRATE Medications to take at Discharge Levothyroxine [Synthroid] 75 mcg PO DAILY 10/02/17 Tadalafil [Cialis] 20 mg PO DAILY PRN 10/02/17 Glucosamine/Chondr Claudio A Sod [Sv Glucosamine-Chondroit Cplt] 2 tab PO DAILY 12/05/17 Nitroglycerin [Nitrostat] 0.4 mg SUBLINGUAL Q5M PRN 12/05/17 Aspirin [Aspirin EC] 81 mg PO DAILY 08/05/18 Cholecalciferol (Vitamin D3) [Vitamin D3] 5,000 unit PO BID 08/05/18 Clopidogrel Bisulfate [Clopidogrel] 75 mg PO DAILY 08/05/18 Diltiazem HCl [Cartia Xt] 300 mg PO DAILY 08/05/18 Meloxicam [Mobic] 15 mg PO DAILY PRN PRN 08/05/18 Pantoprazole Sodium [Protonix] 40 mg PO DAILY 08/05/18 Valsartan/Hydrochlorothiazide [Valsartan-Hctz 160-25 mg Tab] 1 tab PO DAILY 08/05/18 Primary Care Physician: Mayank Gao MD [Primary Care Provider] - Please follow up with your Primary Care Physician in: 1-2 weeks Test Results: Test results from this visit will be discussed in further detail at your follow-up appointment, if applicable. Please Follow Up With: Sixto Argueta MD When: 1-2 weeks Proposed Discharge Date: 08/06/18
[2018-08-06] MEDS: hydroCHLOROthiazide 25 MG Tablet PO (11:30)
--- NOTE | 2018-08-06 16:09 | DS.PCM_ITS ---
Discharge Date and Diagnosis Date of Admission: 08/05/18 Date of Discharge: 08/06/18 - Primary Discharge Diagnosis Chest pain 2/2 GERD Hx CAD prior stent HTN HLD EMMANUEL - Secondary Discharge Diagnosis Chronic Problems (Last Updated 12/06/17 @ 13:29 by Vanessa Kimble) HTN (hypertension) (Chronic) HLD (hyperlipidemia) (Chronic) EMMANUEL (obstructive sleep apnea) (Chronic) Stented coronary artery (Chronic 12/06/17) Arteriosclerosis of coronary artery (Chronic 12/06/17) Stent to OM per Dr. Stephen @ [facility] Course and Treatment Imaging Results: RAD/Chest 1 View (Portable) IMPRESSION: No acute pulmonary findings. Stress test: Impression: 1. Rest and stress SPECT Cardiolite nuclear imaging demonstrate relative uniform tracer uptake and myocardial perfusion appearing within normal limits. 2. The gated Cardiolite study reports an LVEF of 62 %. This note was generated with [employer] dictation software. It may contain incorrect words, spelling, and punctuation that were not noted in checking the note bef Operations: None Procedures: Stress test Summary of Care Provided: Hospital course: The patient is a 63 year old M with pmhx of CAD with a prior stent, HTN, HLD, GERD, EMMANUEL, who presented to the ER with c/o chest pain and lightheadedness occuring while ambulating at work. He described it as chest tightness with no radiation 2-3/10 in severity. Resolved with nitro administration. He came to the ER and was found to have negative EKG, negative troponin, negative CXR. He was admitted for chest pain workup to PCU on tele. No events on monitor. Troponin negative x3. No recurrence of chest pain. Stress test was negative. He had noted that he had been having ongoing issues with acid reflux and esophageal spasms, and that several things lately had been irritating his esophagus. His drier transfer car operator had put him on protonix which had initially helped him. I suspect he is having ongoing issues with GERD or esophageal spasms. I advised him to talk to his PCP about pursuing further workup possibly including upper endoscopy. I advised PCP f/u in 1-2 weeks, and for him to follow up with his drier transfer car operator in 1-2 weeks. He was discharged home in stable condition. This patient was seen by Daniel Harvey PA-C under the supervision of Doctor Ahmet. [] - Physical Exam General: Alert, Oriented x3, Cooperative HEENT: Atraumatic, PERRLA, EOMI, Normocephalic Neck: Supple, No JVD, Negative Carotid Bruits Lungs: Clear to auscultation, Normal air movement Cardiovascular: Regular rate, No murmurs Abdomen: Bowel Sounds Present, Soft, Non Tender Extremities: No edema, Capillary Refill Less than 3 Seconds Skin: No rashes, No breakdown Musculoskeletal: No Tenderness to Palpation of Joints or Extremities Neurological: Cranial nerves II-XII grossly intact Psych/Mental Status: Normal Affect, Appropriate, Alert and oriented to time, place, person, mood and affect Vital Signs Temp Pulse Resp BP Pulse Ox 97.6 F L 60 18 131/71 H 97 08/06/18 11:28 08/06/18 11:28 08/06/18 11:28 08/06/18 11:28 08/06/18 11:43 Oxygen Flow Rate (L/min) 2 Oxygen Delivery Method Room Air Weight: 179 lb 10.828 oz Body Mass Index (BMI) 27.3 Intake and Output for Last 24 Hours 08/04/18 08/05/18 08/06/18 23:59 23:59 23:59 Intake Total 790 / 790 1790 / 1790 Output Total 1275 / 1275 800 / 800 Balance -485 / -485 990 / 990 Laboratory Tests Past 24 Hrs 08/05/18 08/05/18 08/06/18 15:45 18:29 04:56 WBC 6.0 RBC 4.45 L Hgb 14.1 Hct 41.5 MCV 93.3 MCH 31.7 MCHC 34.0 RDW 13.4 RDW Differential 45.8 H Plt Count 258 MPV 9.7 PT INR APTT Sodium Potassium Chloride Carbon Dioxide Anion Gap BUN Creatinine Estim Creat Clear Calc Est GFR (MDRD) Af Amer Est GFR (MDRD) Non-Af BUN/Creatinine Ratio Glucose Calcium Total Bilirubin AST ALT Alkaline Phosphatase Troponin I < 0.015 < 0.015 Total Protein Albumin Globulin Albumin/Globulin Ratio Triglycerides Cholesterol LDL Cholesterol VLDL Cholesterol HDL Cholesterol 08/06/18 08/06/18 04:56 04:56 WBC RBC Hgb Hct MCV MCH MCHC RDW RDW Differential Plt Count MPV PT 15.0 H INR 1.2 APTT 29.6 Sodium 139 Potassium 3.7 Chloride 107 Carbon Dioxide 26.0 Anion Gap 6 BUN 12 Creatinine 0.94 Estim Creat Clear Calc 76.81 Est GFR (MDRD) Af Amer 104 Est GFR (MDRD) Non-Af 86 BUN/Creatinine Ratio 12.8 Glucose 86 Calcium 8.5 Total Bilirubin 0.80 AST 21 ALT 27 Alkaline Phosphatase 59 Troponin I Total Protein 6.4 Albumin 3.6 Globulin 2.8 Albumin/Globulin Ratio 1.3 Triglycerides 197 Cholesterol 200 LDL Cholesterol 132 H VLDL Cholesterol 39 HDL Cholesterol 29 L Discharge Diet: Low fat/ Low Cholesterol, 2000 mg Sodium Diet Discharge Activity: Return to Normal Activity Home Medications: Medications to take at Discharge Levothyroxine [Synthroid] 75 mcg PO DAILY 10/02/17 Tadalafil [Cialis] 20 mg PO DAILY PRN 10/02/17 Glucosamine/Chondr Claudio A Sod [Sv Glucosamine-Chondroit Cplt] 2 tab PO DAILY 12/05/17 Nitroglycerin [Nitrostat] 0.4 mg SUBLINGUAL Q5M PRN 12/05/17 Aspirin [Aspirin EC] 81 mg PO DAILY 08/05/18 Cholecalciferol (Vitamin D3) [Vitamin D3] 5,000 unit PO BID 08/05/18 Clopidogrel Bisulfate [Clopidogrel] 75 mg PO DAILY 08/05/18 Diltiazem HCl [Cartia Xt] 300 mg PO DAILY 08/05/18 Meloxicam [Mobic] 15 mg PO DAILY PRN PRN 08/05/18 Pantoprazole Sodium [Protonix] 40 mg PO DAILY 08/05/18 Valsartan/Hydrochlorothiazide [Valsartan-Hctz 160-25 mg Tab] 1 tab PO DAILY 08/05/18 Primary Care Physician: Mayank Gao MD [Primary Care Provider] - Please follow up with your Primary Care Physician in: 1-2 weeks Please Follow Up With: Sixto Argueta MD When: 1-2 weeks Disposition: Home Minutes spent on discharge:: 35 Patient Condition:: Stable Medical Necessity - Tobacco Use Smoking Status: Never smoker Tobacco Use: Non-smoker Meaningful Use Info Meaningful Use Diagnoses (Choose all that apply): None applicable
== END 2018-08-06 11:25 | disposition home or self-care (01) ==
LOC: ED 12:47 → PCU 13:51
PROVIDERS: Admitting Provider Family Medicine; Emergency Provider Emergency Medicine; Family Provider Family Medicine; PCP Family Medicine; Referring Provider Family Medicine; Visit Provider Internal Medicine
DX: R07.89 Other chest pain (principal); I10 Essential (primary) hypertension; E78.5 Hyperlipidemia, unspecified; I25.10 Atherosclerotic heart disease of native coronary artery without angina pectoris; G47.33 Obstructive sleep apnea (adult) (pediatric); Z95.5 Presence of coronary angioplasty implant and graft; K21.9 Gastro-esophageal reflux disease without esophagitis; E03.9 Hypothyroidism, unspecified; Z79.899 Other long term (current) drug therapy; Z79.02 Long term (current) use of antithrombotics/antiplatelets; Z79.82 Long term (current) use of aspirin; G89.29 Other chronic pain; R42 Dizziness and giddiness
CPT/HCPCS: 36415; 71045; 78452; 80048; 80053; 80061; 83735; 84484; 85025; 85027; 85610; 85730; 93005; 93017; 96360; 96361; 99218; 99283; A9500; J7030; A4216; G0378

== ENCOUNTER → 2020-02-16 06:54 | Outpatient (CLI) | payer BC, SELFPAY ==
[2017-12-06 13:52] VITALS: BMI 30.9
[2018-10-28 15:17] VITALS: BMI 28.3
--- NOTE | 2020-02-17 10:43 | STRESSREP_ITS ---
Stress Test Report Date: 02/16/2020 Procedure: Exercise tolerance test/imaging study Indications: Chest pain Consent: Per the patient Procedure: The patient exercised on a Nico protocol for 12 minutes achieving a peak heart rate of 144 bpm (92% predicted maximal heart rate) with a peak blood pressure 190/80 mmHg and a peak MET capacity of 13.4 METs. The baseline ECG demonstrated sinus rhythm. The peak exercise ECG demonstrated no significant ischemic changes. EKG during recovery revealed no significant ischemic changes [There were no cardiac dysrhythmias pretest, during exercise, or recovery]. The functional capacity was considered excellent for age. There was [no complaint of chest discomfort during exercise or recovery]. The examination was discontinued secondary to dyspnea, knee discomfort. Impression: 1. Technically adequate (percent predicted maximal heart rate greater than 85%) exercise tolerance test 2. Stress test is negative for exercise-induced EKG changes of ischemia 3. The test test is negative for exercise-induced chest pain 4. Functional capacity is excellent for age 5. Nuclear images pending Myocardial perfusion imaging study: Technique: The patient was injected with 11.1 mCi of technetium 99m Cardiolite and subsequently rest SPECT Cardiolite nuclear imaging was obtained in the horizon ana long, vertical long, and short axis views. The patient exercised on a Nico protocol. Please see above for details. The patient was injected with 35 mCi of technetium 99m Cardiolite and subsequently stress SPECT Cardiolite nuclear imaging was obtained in the horizontal long, vertical long, and short axis views. A gated Cardiolite study at peak stress was obtained. Interpretation: Rest and stress SPECT Cardiolite nuclear imaging status post realignment, normalization, and attenuation correction, demonstrates mildly decreased radioisotope uptake in the inferior wall on both the rest and stress images prior to attenuation correction. After attenuation correction on the stress images there is normal myocardial radioisotope uptake. There is no evidence of significant ischemia. These findings are suggestive of diaphragmatic attenuation artifact. There is no evidence of significant infarction. The gated Cardiolite study demonstrates no significant regional wall motion abnormalities. The reported LVEF is greater than 70%. Impression: 1. There is no evidence of significant ischemia or infarction. 2. The gated Cardiolite study reports an LVEF of greater than 70%. This note was generated with [employer]ation software. It may contain incorrect words, spelling, and punctuation that were not noted in checking the note before signing.
== END ==
PROVIDERS: PCP Family Medicine; Referring Provider Physician Assistant Medical; Visit Provider Physician Assistant Medical
DX: I25.10 Atherosclerotic heart disease of native coronary artery without angina pectoris (principal); Z95.5 Presence of coronary angioplasty implant and graft; I10 Essential (primary) hypertension; E78.5 Hyperlipidemia, unspecified; G47.33 Obstructive sleep apnea (adult) (pediatric); R07.89 Other chest pain; R07.9 Chest pain, unspecified
CPT/HCPCS: 78452; 93017; A9500

== ENCOUNTER 2020-07-20 08:28 | Day surgery (SDC) | payer BC, SELFPAY ==
[2017-12-06 13:52] VITALS: BMI 30.9
[2020-07-12 08:33] VITALS: BMI 30.5
--- NOTE | 2020-07-12 09:48 | RAD_ITS ---
INDICATION: chest pain, weakness in both arms, fatigue x 2-3 months. EXAMINATION/TECHNIQUE: X-RAY - XR Chest 2 Views COMPARISON: 08/05/2018. FINDINGS: The lungs are clear. The cardiomediastinal silhouette is unremarkable. No pleural effusion or pneumothorax. No acute osseous abnormalities. RAD/Chest PA and Lateral IMPRESSION: No acute radiographic abnormalities. Electronically Signed: Alexsander Abernathy MD at 0:25 EDT Tel , Service support ,
[2020-07-12 10:39] LABS: Absolute Lymphocyte Count 1.61 X10^3/uL (0.83-4.51); Basophil# 0.05 X10^3/uL; Basophil% 0.9 % (0-1); Eosinophil# 0.26 X10^3/uL; Eosinophils% 4.7 % (0-5); Hematocrit 44.9 % (40-54); Hemoglobin 15.4 g/dL (13.0-16.5); Lymphocyte # 1.61 X10^3/ul (4.0); Mean Corp Hgb Conc 34.3 g/dL (32-36); Mean Corpuscular Hgb 32.4 pg (27.0-32.0); Mean Corpuscular Volume 94.5 fL (80-94); Mean Platelet Vol. 9.8 fl (6.2-12.0); Monocyte# 0.59 X10^3/uL; Monocyte% 10.6 % (0-10); NRBC Flagged by Analyzer 0 % (0-5); Neutrophil # 3.02 X10^3/uL (2.7-7.7); Neutrophil % 54.4 % (47-70); Platelet Count 305 K/mm3 (150-450); RBC Distribution Width CV 12.8 % (11.6-14.6); RBC Distribution Width SD 44.5 fl (35.1-43.9); Red Blood Count 4.75 M/mm3 (4.6-6.2); White Blood Count 5.6 K/mm3 (4.4-11.0)
[2020-07-12 10:41] LABS: Partial Thromboplast Time 26.7 Seconds (24.1-36.2); Prothrombin Time (Protime)PT. 12.7 SECONDS (11.7-14.9)
[2020-07-12 11:10] LABS: Anion Gap 5 (5-15); BUN 15 mg/dL (7-18); BUN/Creat Ratio 15.3 RATIO (10-20); Calcium,Total 9.2 mg/dL (8.5-10.1); Chloride 102 mmol/L (98-107); Creatinine, Serum 0.98 mg/dL (0.70-1.30); EST Glomerular Filtration Rate 81 mL/min (>60); Est Glom Filt Rate - Afr Amer 98 mL/min (>60); Glucose 101 mg/dL (74-106); Potassium 3.7 mmol/L (3.5-5.1); Sodium Level 137 mmol/L (136-145)
[2020-07-19 09:22] VITALS: BMI 30.5
--- NOTE | 2020-07-20 11:26 | CL.D_ITS ---
Patient Name: LORENZO STILL Study Date: 07/20/2020 Performing: Laura German MD Ht: 66.92 inches 170 cm : 1955 Wt: 194.01 lbs 88 kg Age: 65 Gender: male BSA: 1.99 PROCEDURE(S) PERFORMED JE02-IEW/[id number]/LV CLINICAL PROFILE AND INDICATIONS Indications: Suspected CAD Heart Failure: None Stress/Imaging Stress/Image Study Performed: No CAD Presentations: Unstable angina. CONCLUSIONS CAD as described. No significant or MR. EF is 60% RECOMMENDATIONS DESCRIPTION OF PROCEDURE The patient arrived to the procedure lab. The risks and benefits of the procedure as well as a full d escription of our services here and current unavailability of surgical backup were fully explained to the patient and/or their significant other prior to the catheterization. The Timeout was completed, verifying the correct patient and procedure. The patient's procedural site was prepped and draped in the usual fashion. Local anesthetic was given subcutaneously to right radial region with Lidocaine 2% . Using a modified Seldinger technique, arterial access was obtained via the right radial artery, a 6 Fr sheath was inserted. Left Coronary Artery selective angiography was performed in multiple views u sing a 5 Fr. JL3.5 catheter. Left Ventriculography was performed in FIORE projection using a 5 Fr. JR4 catheter. LV to AO pullback pressures were then recorded. Right Coronary Artery selective angiogr aphy was then performed in multiple views using a 5 Fr. JR 4 catheter.The arterial sheath was pulled and a TR Band was applied for hemostasis. 15cc of air CORONARY ANGIOGRAPHY DOMINANCE: Right Dominant LEFT HEART ASSESSMENT Left Ventricular Ejection Fraction: by LV Gram 60 % Normal LV wall motion LEFT MAIN: Mild luminal irregularities LEFT ANTERIOR DESCENDING ARTERY: Previously placed stent is patent, Mild luminal irregularities DIAGONAL 1: Ostial - 70 % Stenosis. Small vessel CIRCUMFLEX ARTERY: MID CIRC: 50 % Stenosis RIGHT CORONARY ARTERY: MID RCA: 40-50 % Stenosis VALVE FINDINGS: No Aortic Valve Stenosis No Mitral Insufficency COMPLICATIONS No Complications PROCEDURE MEDICATIONS Fentanyl 50 mcg IV Versed 1 mg IV Oxygen: 2 L/min via nasal cannula Heparin given IA 07/20/2020 10:11:51 Verapamil 2.5mg, Ntg 100mcgs, 3000 units of Heparin given IA 07/20/2020 10:11:51 SUMMARY OF HEMODYNAMIC DATA Time AIR REST ECG 08:59:30 AO 128/71 (93) SA 10:14:23 LV 135/-1, 18 10:18:44 LV 136/-1, 14 10:18:50 LVp 135/1, 22 10:19:27 AOp 131/67 (94) 10:19:32 Signed By Laura German MD On 07/20/2020 11:25:06 AM Laura German MD
== END 2020-07-20 13:45 | disposition home or self-care (01) ==
PROVIDERS: Physician Assistant Medical; PCP Family Medicine; Referring Provider Specialist; Visit Provider Specialist
DX: I25.10 Atherosclerotic heart disease of native coronary artery without angina pectoris (principal); E78.00 Pure hypercholesterolemia, unspecified; I10 Essential (primary) hypertension; G47.33 Obstructive sleep apnea (adult) (pediatric); K21.9 Gastro-esophageal reflux disease without esophagitis; Z87.19 Personal history of other diseases of the digestive system; Z79.82 Long term (current) use of aspirin; Z79.899 Other long term (current) drug therapy
CPT/HCPCS: 36415; 71046; 80048; 85025; 85610; 85730; 93458; 99152; J7040; Q9967; C1769; C1894

== ENCOUNTER 2021-04-26 17:32 | Outpatient (CLI) | payer MEDICARE, SELFPAY ==
[2017-12-06 13:52] VITALS: BMI 30.9
[2021-04-26 17:53] VITALS: BP 136/83; BMI 39.1
[2021-04-26] MEDS: 0.9% Saline Lock 10 ML Syringe IV (18:04)
[2021-04-26 18:37] VITALS: BP 138/88; PULSE 70; RESP 16; TEMP 36.8; O2SAT 98
[2021-04-26 19:27] VITALS: BP 142/92; PULSE 69; RESP 16; TEMP 36.4; O2SAT 98
== END 2021-04-26 23:59 | disposition home or self-care (01) ==
LOC: MS3OUT 17:34 → MS3 17:34
PROVIDERS: PCP Family Medicine; Visit Provider Nurse Practitioner Acute Care
DX: Z23 Encounter for immunization (principal); U07.1 COVID-19
CPT/HCPCS: J7050; M0245; Q0245; A4216

== ENCOUNTER 2022-02-01 02:21 | Emergency (ER) | payer MEDICARE, SELFPAY ==
[2017-12-06 13:52] VITALS: BMI 30.9
[2022-02-01 02:22] VITALS: BP 153/93; PULSE 76; RESP 18; TEMP 36.2; O2SAT 99; BMI 32.1
--- NOTE | 2022-02-01 02:35 | CT_ITS ---
STUDY: CT ABDOMEN AND PELVIS WITHOUT CONTRAST REASON FOR EXAM: Male, 66 years old. flank pain RADIATION DOSAGE (If Supplied By Facility): CTDIvol = ( 11.72 ) mGy, DLP = ( 585.71 ) mGycm TECHNIQUE: Transaxial images were obtained from the dome of the diaphragm to the symphysis pubis without oral contrast, and without intravenous contrast. Sagittal and coronal images were reconstructed. Individualized dose optimization techniques were used for this CT. COMPARISON: None. FINDINGS: LOWER CHEST: Reticular opacities in the lower lungs likely scarring. Moderate coronary artery calcifications. LIVER: Grossly unremarkable. GALLBLADDER AND BILIARY TREE: Grossly unremarkable. PANCREAS: Grossly unremarkable. SPLEEN: Grossly unremarkable. ADRENAL GLANDS: Grossly unremarkable. KIDNEYS AND URETERS: There is a 6 mm calculus in the proximal right ureter at the ureteropelvic junction with moderate right hydronephrosis and perinephric stranding. Smaller calculus in the left kidney. No hydronephrosis on the left. Low attenuation structure in the left kidney 4.7 cm likely a cyst but not completely assessed without contrast. PERITONEUM: No free air. No free fluid. BOWEL: Scattered diverticula throughout the colon. No bowel obstruction. APPENDIX: Visualized and unremarkable. No evidence of acute appendicitis. VESSELS: Abdominal aorta is normal caliber. REPRODUCTIVE ORGANS: Grossly unremarkable URINARY BLADDER: Grossly unremarkable. ABDOMINAL WALL: Unremarkable. BONES: Degenerative changes in lumbar spine. CT/Abdomen/Pelvis without Cont IMPRESSION: Proximal right ureteral calculus with moderate right hydronephrosis. Left nephrolithiasis. Colonic diverticulosis. Electronically Signed: Eneida Torres MD at 3:28 EDT ,
[2022-02-01 02:48] LABS: Absolute Lymphocyte Count 2.83 X10^3/uL (0.83-4.51); Absolute Neutrophil Count 2.8 X10^3/uL (2.0-7.7); Basophil# 0.08 X10^3/uL; Basophil% 1.1 % (0-1); Eosinophil# 0.63 X10^3/uL; Eosinophils% 8.8 % (0-5); Hematocrit 43.8 % (40-54); Hemoglobin 14.9 g/dL (13.0-16.5); Lymphocyte # 2.83 X10^3/ul (0.83-4.51); Lymphocyte % 39.6 % (19-41); Mean Corpuscular Hgb 32.1 pg (27.0-32.0); Mean Corpuscular Volume 94.4 fL (80-94); Mean Platelet Vol. 9.4 fl (6.2-12.0); Monocyte# 0.77 X10^3/uL; Monocyte% 10.8 % (0-10); NRBC Flagged by Analyzer 0 % (0-5); Neutrophil % 39.3 % (47-70); Platelet Count 320 K/mm3 (150-450); RBC Distribution Width CV 13.2 % (11.6-14.6); RBC Distribution Width SD 45.6 fl (35.1-43.9); Red Blood Count 4.64 M/mm3 (4.6-6.2); White Blood Count 7.1 K/mm3 (4.4-11.0)
[2022-02-01] MEDS: Ondansetron 4 MG/2 ML Vial IV (02:59)
[2022-02-01] MEDS: Morphine 4 MG/ML Syringe IV (02:59)
[2022-02-01] MEDS: 0.9% Normal Saline 1,000 ML 999 ML IV (03:00)
[2022-02-01 03:08] LABS: Anion Gap 7 (5-15); BUN 12 mg/dL (7-18); BUN/Creat Ratio 12.1 RATIO (10-20); Calcium,Total 9.1 mg/dL (8.5-10.1); Chloride 104 mmol/L (98-107); EST Glomerular Filtration Rate 80 mL/min (>60); Est Glom Filt Rate - Afr Amer 96 mL/min (>60); Estimated Creatinine Clearance 67.02 ml/min; Glucose 110 mg/dL (74-106); Potassium 3.5 mmol/L (3.5-5.1); Sodium Level 139 mmol/L (136-145)
--- NOTE | 2022-02-01 03:18 | EDS_ITS ---
HPI History of Present Illness Chief Complaint: Flank Pain Narrative Narrative: Patient is a 66-year-old male with past medical history of CAD hypertension hyperlipidemia. He also reports a remote history of a kidney stone on the left side roughly 30 years ago. He states he went to bed normally on Saturday night and then awoke around 1 AM with right-sided lower abdominal pain. He states the pain is sharp and stabbing in nature. He states it is radiating towards the right groin. He states he urinated and looked dark/bloody. He denies any recent trauma fevers or chills or dysuria. He states that with concern he developed a kidney stone once again he presents for evaluation [facility] Medical History Atherosclerosis of coronary artery of [place] heart without angina pectoris Essential hypertension GERD (gastroesophageal reflux disease) History of umbilical hernia HLD (hyperlipidemia) EMMANUEL (obstructive sleep apnea) Home Medications levothyroxine 75 mcg tablet 75 mcg PO DAILY THYROID 10/02/17 [History Last Taken 08/05/18] nitroglycerin 0.4 mg sublingual tablet 0.4 mg sublingual Q5M PRN Chest Pain 12/05/17 [History Last Taken 08/05/18] aspirin 81 mg tablet,delayed release 81 mg PO DAILY HEART HEALTH 08/05/18 [History Last Taken 07/20/20] cholecalciferol (vitamin D3) 125 mcg (5,000 unit) capsule 5,000 unit PO BID SUPPLEMENT 08/05/18 [History Last Taken 08/05/18] diltiazem HCl 300 mg capsule,extended release 24 hr 300 mg PO DAILY HEART 08/05/18 [History Last Taken 07/20/20] pantoprazole 40 mg tablet,delayed release 40 mg PO DAILY GERD 08/05/18 [History Last Taken 07/20/20] valsartan 160 mg-hydrochlorothiazide 25 mg tablet 1 tab PO DAILY HEART 08/05/18 [History Last Taken 07/20/20] sildenafil (pulm.hypertension) 20 mg tablet 60 mg PO DAILY PRN sexual activity 03/29/20 [History Last Taken Unknown] multivitamin 1 tablet PO DAILY 07/12/20 [History Last Taken Unknown] Prevagen 1 tab PO DAILY 10/12/20 [History Last Taken Unknown] triamcinolone acetonide 0.1 % topical ointment 1 applic topical DAILY PRN . 10/12/20 [History Last Taken Unknown] evolocumab 140 mg/mL subcutaneous pen injector (Melissa Gray) 140 mg subcut Q2W #2 mL 07/07/21 [Rx Last Taken Unknown] ketorolac 10 mg tablet 10 mg PO Q6H PRN pain 5 days #20 tabs 02/01/22 [Rx Last Taken Unknown] oxycodone-acetaminophen 5 mg-325 mg tablet (Percocet) 1 tab PO Q6H PRN pain 3 days #12 tabs 02/01/22 [Rx Last Taken Unknown] tamsulosin 0.4 mg capsule (Flomax) 0.4 mg PO DAILY #14 caps 02/01/22 [Rx Last Taken Unknown] Allergy/AdvReac Type Severity Reaction Status Date / Time fenofibrate [From Tricor] Allergy Severe irritability Verified 02/01/22 02:25 from brand name only ezetimibe [From Zetia] AdvReac Intermediate myalgias Verified 02/01/22 02:25 Swsrign-ZHO-EmC Reductase AdvReac Intermediate myalgias Verified 02/01/22 02:25 Inhibitor [Slugqvh-Yde-Zfs Reductase Inhibitor] adhesive tape AdvReac Rash Verified 02/01/22 02:25 Family History Mother Myocardial infarction TIA (transient ischemic attack) Surgical History History of back surgery History of cataract extraction History of coronary artery stent placement (12/06/17) History of inguinal hernia repair History of left heart catheterization (07/20/20) History of retinal tear Social History Smoking Status: Never smoker alcohol intake: never substance use type: does not use caffeine: Yes (occasionally) ROS ROS ED Constitutional Constitutional ED: Denies chills or fever(s) ENT ENT ED: Denies sore throat Cardiovascular Cardiovascular: Denies chest pain Respiratory/Chest Respiratory/Chest: Denies cough or dyspnea Gastrointestinal Gastrointestinal: Reports abdominal pain and nausea; Denies diarrhea or vomiting Genitourinary Genitourinary ED: Reports hematuria; Denies dysuria Musculoskeletal Musculoskeletal: Reports back pain; Denies myalgias Integumentary Denies rash Neurologic Neurologic: Denies headache(s) Hematologic/Lymphatic Hematologic/Lymphatic: Denies easy bleeding or easy bruising EXAM Physical Exam Const Vital Signs: 02/01/22 02:22 Temperature 97.1 F L Temperature Source Temporal Pulse Rate 76 Respiratory Rate 18 Blood Pressure 153/93 H Blood Pressure Mean 113 Pulse Ox 99 Oxygen Delivery Method Room Air Positive well nourished and well developed General Appearance ED: well developed Eyes PERRL and EOMs intact bilaterally Neck supple Resp normal respiratory effort and clear to auscultation bilaterally Cardio regular rate and regular rhythm Rate: other Other Details: Radial pulses are plus 2 out of 4 bilaterally are equal and symmetric GI non-distended GI Narrative: Abdomen is obese soft and nondistended with normoactive bowel sounds. There is pain on palpation in the right lower quadrant without voluntary guarding or rigidity. No pulsatile mass or fluid wave noted. Auscultation: normoactive bowel sounds Palpation: soft Back/Spine Back/Spine Narrative: Mild right CVA pain Extremity normal to inspection Neuro oriented x3 and CN's II-XII intact bilaterally Sensorium / Orientation: alert Psych mental status grossly normal Skin no rashes or lesions noted Skin Narrative: No overlying soft tissue changes to suggest trauma or infection MDM MDM MDM Narrative Medical decision making narrative: Patient presented to the ER afebrile with a history and exam most consistent with kidney stone. Secondary to his basic blood work or UA and noncontrast CAT scan were obtained. Blood work reveals no signs of urosepsis or acute kidney injury. Urine shows no signs of UTI and there is a large amount of blood consistent with stone. Noncontrast CAT scan displays a 6 mm stone in the distal UVJ consistent with his history and exam. At this time as he does not have urosepsis or ANA and his pain has resolved he is safe for discharge and can follow-up with urology on an outpatient basis to discuss need for stent placement Lab Data Attestation: I reviewed the patient's lab results. Labs: Laboratory Results - last 24 hr 02/01/22 02/01/22 02/01/22 02:30 02:30 03:58 WBC 7.1 RBC 4.64 Hgb 14.9 Hct 43.8 MCV 94.4 H MCH 32.1 H MCHC 34.0 RDW Std Deviation 45.6 H RDW Coeff of Latricia 13.2 Plt Count 320 MPV 9.4 Immature Gran % (Auto) 0.400 Neut % (Auto) 39.3 L Lymph % (Auto) 39.6 [place] % (Auto) 10.8 H Eos % (Auto) 8.8 H Baso % (Auto) 1.1 H Absolute Neuts (auto) 2.8 Absolute Lymphs (auto) 2.83 Nucleated RBC % 0 Sodium 139 Potassium 3.5 Chloride 104 Carbon Dioxide 28.0 Anion Gap 7 BUN 12 Creatinine 1.00 Estim Creat Clear Calc 67.02 Est GFR (MDRD) Af Amer 96 Est GFR (MDRD) Non-Af 80 BUN/Creatinine Ratio 12.1 Glucose 110 H Calcium 9.1 Urine Color Yellow Urine Clarity Clear Urine pH 7.0 Ur Specific [place] 1.010 Urine Protein 30 H Urine Glucose (UA) Normal Urine Ketones Negative Urine Occult Blood 250 H Urine Nitrite Negative Urine Bilirubin Negative Urine Urobilinogen Normal Ur Leukocyte Esterase 25 H Urine RBC > 100 SEEN Urine WBC 0-5 SEEN Ur Squamous Epith Cells 0 SEEN Urine Bacteria 0 SEEN Urine Mucus 0 SEEN Radiography Diagnostic Testing: Clinical Impression(s) from Imaging Studies Abdomen/Pelvis CT 02/01/22 02:35 IMPRESSION: Proximal right ureteral calculus with moderate right hydronephrosis. Left nephrolithiasis. Colonic diverticulosis. Electronically Signed: Eneida Torres MD at 3:28 EDT Reading Location ID and State: [address] [place] [address] Tel , Service support , Discharge Plan Triage Chief Complaint: Flank Pain ED Provider: Vladimir Howell Dx/Rx/DC Orders Clinical Impression: Kidney stone, Renal colic, Hydronephrosis Instructions: ED Kidney Stone w/ Colic Prescriptions: New oxycodone-acetaminophen [Percocet] 5-325 mg tablet 1 tab PO Q6H PRN (Reason: pain) 3 Days Qty: 12 0RF ketorolac 10 mg tablet 10 mg PO Q6H PRN (Reason: pain) 5 Days Qty: 20 0RF tamsulosin [Flomax] 0.4 mg capsule 0.4 mg PO DAILY Qty: 14 0RF No Action triamcinolone acetonide 0.1 % ointment 1 applic TOPICAL DAILY PRN (Reason: .) sildenafil (pulm.hypertension) 20 mg tablet 60 mg PO DAILY PRN (Reason: sexual activity) Label Comments: TAKE 3 TABS BY MOUTH ONCE A DAY NEEDED multivitamin Tablet 1 tablet PO DAILY Prevagen 1 tab PO DAILY levothyroxine 75 MCG tablet 75 mcg PO DAILY nitroglycerin 0.4 MG tablet 0.4 mg sublingual Q5M PRN (Reason: Chest Pain) aspirin 81 MG tablet,delayed release (DR/EC) 81 mg PO DAILY diltiazem HCl 300 MG capsule,extended release 24hr 300 mg PO DAILY pantoprazole 40 MG tablet 40 mg PO DAILY cholecalciferol (vitamin D3) 5,000 UNIT capsule 5,000 unit PO BID valsartan-hydrochlorothiazide 160-25M tablet 1 tab PO DAILY Repatha SureClick 140 mg/mL pen injector 140 mg subcut Q2W Qty: 2 11RF Hold Instructions: Waiting to discuss with PCP Primary Care Provider: Mayank Gao Referrals: Mikal Qiu MD [Med Staff - Active Staff] - Mayank Gao MD [Primary Care Provider] - Activity Restrictions/Additional Instructions: Please return to the ER if you develop a fever over 100.4 or your pain is not controlled with outpatient medications. Otherwise please follow-up with urology for repeat evaluation and to discuss need for possible stent placement Disposition Disposition: Home, Self Care
[2022-02-01 04:03] LABS: Bacteria 0 SEEN /hpf (None Seen); Mucous, Urine 0 SEEN /hpf (<or=2+); Squamous Epithelial Cells - UA 0 SEEN /hpf (0-5)
[2022-02-01 04:04] LABS: Color, Urine Yellow (Yellow); Glucose, Dipstick Normal (Normal); Ketone-Dipstick Negative (Negative); Leukocyte Esterase-Dipstick 25 /ul (Negative); Nitrite-Dipstick Negative (Negative); Occult Blood-Urine 250 /ul (Negative); Protein-Dipstick 30 mg/dl (Negative); Urine Bilirubin Dipstick Negative (Negative); Urine Clarity Clear (Clear); Urine Urobilinogen Normal (Normal)
[2022-02-01 04:11] LABS: Red Blood Cells-Urine > 100 SEEN /hpf (0-5); White Blood Cells 0-5 SEEN /hpf (0-5)
== END 2022-02-01 05:36 | disposition home or self-care (01) ==
PROVIDERS: Emergency Provider Emergency Medicine; PCP Family Medicine; Visit Provider Emergency Medicine
DX: N13.2 Hydronephrosis with renal and ureteral calculous obstruction (principal); N23 Unspecified renal colic; I10 Essential (primary) hypertension; E78.5 Hyperlipidemia, unspecified; I25.10 Atherosclerotic heart disease of native coronary artery without angina pectoris; R31.9 Hematuria, unspecified
CPT/HCPCS: 74176; 80048; 81001; 85025; 96374; 96375; 99283; J7030; A4216; J2405

== ENCOUNTER 2022-02-04 15:47 | Emergency (ER) | payer MEDICARE, SELFPAY ==
[2017-12-06 13:52] VITALS: BMI 30.9
[2022-02-04 15:48] VITALS: BP 129/81; PULSE 96; RESP 15; TEMP 36.7; O2SAT 99; BMI 31.0
[2022-02-04 16:30] LABS: Bacteria 0 SEEN /hpf (None Seen); Mucous, Urine 0 SEEN /hpf (<or=2+); Red Blood Cells-Urine 0 SEEN /hpf (0-5); Squamous Epithelial Cells - UA 0 SEEN /hpf (0-5)
[2022-02-04 16:40] LABS: Color, Urine Yellow (Yellow); Glucose, Dipstick Normal (Normal); Ketone-Dipstick Negative (Negative); Leukocyte Esterase-Dipstick 25 /ul (Negative); Nitrite-Dipstick Negative (Negative); Occult Blood-Urine 150 /ul (Negative); Protein-Dipstick Negative (Negative); Urine Bilirubin Dipstick Negative (Negative); Urine Urobilinogen Normal (Normal); Urine pH 6.5 (5.0 - 8.0)
[2022-02-04 16:48] LABS: Urine Clarity Clear (Clear)
[2022-02-04 16:49] LABS: White Blood Cells 10-25 SEEN /hpf (0-5)
[2022-02-04 17:24] VITALS: RESP 16
--- NOTE | 2022-02-04 17:24 | EDS_ITS ---
HPI History of Present Illness Chief Complaint: Weakness Narrative Narrative: Patient presenting with generalized weakness. He states he was diagnosed with a kidney stone a couple days ago here at [facility]. He states that 6 mm in the right UVJ. He states he has not had any significant pain and has not been taking the oxycodone that he was prescribed. He states that he has not had any more blood in his urine. He is not had a fever or chills. He states he just feels rundown today. He states yesterday he was able to work out the yard with light housework. Patient reports that he has been drinking plenty of fluids and eating normally. He states he has not had any nausea or vomiting. He states because he was rundown and called the emergency room and could not differentiate feeling rundown from weakness. He states that they would not tell him over the phone. [facility] Medical History Atherosclerosis of coronary artery of [place] heart without angina pectoris Essential hypertension GERD (gastroesophageal reflux disease) History of umbilical hernia HLD (hyperlipidemia) EMMANUEL (obstructive sleep apnea) Home Medications levothyroxine 75 mcg tablet 75 mcg PO DAILY THYROID 10/02/17 [History Last Taken 08/05/18] nitroglycerin 0.4 mg sublingual tablet 0.4 mg sublingual Q5M PRN Chest Pain 12/05/17 [History Last Taken 08/05/18] aspirin 81 mg tablet,delayed release 81 mg PO DAILY HEART HEALTH 08/05/18 [History Last Taken 07/20/20] cholecalciferol (vitamin D3) 125 mcg (5,000 unit) capsule 5,000 unit PO BID SUPPLEMENT 08/05/18 [History Last Taken 08/05/18] diltiazem HCl 300 mg capsule,extended release 24 hr 300 mg PO DAILY HEART 08/05/18 [History Last Taken 07/20/20] pantoprazole 40 mg tablet,delayed release 40 mg PO DAILY GERD 08/05/18 [History Last Taken 07/20/20] valsartan 160 mg-hydrochlorothiazide 25 mg tablet 1 tab PO DAILY HEART 08/05/18 [History Last Taken 07/20/20] sildenafil (pulm.hypertension) 20 mg tablet 60 mg PO DAILY PRN sexual activity 03/29/20 [History Last Taken Unknown] multivitamin 1 tablet PO DAILY 07/12/20 [History Last Taken Unknown] Prevagen 1 tab PO DAILY 10/12/20 [History Last Taken Unknown] triamcinolone acetonide 0.1 % topical ointment 1 applic topical DAILY PRN . 10/12/20 [History Last Taken Unknown] evolocumab 140 mg/mL subcutaneous pen injector (Melissa Gray) 140 mg subcut Q2W #2 mL 07/07/21 [Rx Last Taken Unknown] ketorolac 10 mg tablet 10 mg PO Q6H PRN pain 5 days #20 tabs 02/01/22 [Rx Last Taken Unknown] oxycodone-acetaminophen 5 mg-325 mg tablet (Percocet) 1 tab PO Q6H PRN pain 3 days #12 tabs 02/01/22 [Rx Last Taken Unknown] tamsulosin 0.4 mg capsule (Flomax) 0.4 mg PO DAILY #14 caps 02/01/22 [Rx Last Taken Unknown] Allergy/AdvReac Type Severity Reaction Status Date / Time fenofibrate [From Tricor] Allergy Severe irritability Verified 02/04/22 15:50 from brand name only ezetimibe [From Zetia] AdvReac Intermediate myalgias Verified 02/04/22 15:50 Cdbirga-SKR-NcM Reductase AdvReac Intermediate myalgias Verified 02/04/22 15:50 Inhibitor [Lafrkeb-Zpc-Gng Reductase Inhibitor] adhesive tape AdvReac Rash Verified 02/04/22 15:50 Family History Mother Myocardial infarction TIA (transient ischemic attack) Surgical History History of back surgery History of cataract extraction History of coronary artery stent placement (12/06/17) History of inguinal hernia repair History of left heart catheterization (07/20/20) History of retinal tear Social History Smoking Status: Never smoker alcohol intake: never substance use type: does not use caffeine: Yes (occasionally) ROS ROS ED Constitutional Constitutional ED: Denies chills or fever(s) Eyes Eyes: Denies change in vision or diplopia ENT ENT ED: Denies rhinorrhea or sore throat Cardiovascular Cardiovascular: Denies chest pain or palpitations Respiratory/Chest Respiratory/Chest: Denies cough or dyspnea Gastrointestinal Gastrointestinal: Reports abdominal pain; Denies nausea or vomiting Genitourinary Genitourinary ED: Denies dysuria or hematuria Musculoskeletal Musculoskeletal: Reports back pain; Denies arthralgias Integumentary Denies abscess or Abrasions Neurologic Neurologic: Denies headache(s) Psychiatric Psychiatric: Denies anxiety or depression EXAM Physical Exam Const Vital Signs: 02/04/22 15:48 02/04/22 16:32 Temperature 98.1 F Temperature Source Temporal Pulse Rate 96 Respiratory Rate 15 Respiratory Effort Normal Non-Labored Respiratory Pattern Normal Blood Pressure 129/81 H Blood Pressure Mean 97 Pulse Ox 99 Oxygen Delivery Method Room Air Positive well nourished General Appearance ED: NAD; Negative for pallor HEENT Reports moist mucous membranes Negative for trauma Eyes PERRL and EOMs intact bilaterally Neck no lymphadenopathy Resp normal respiratory effort Cardio regular rate GI normal to inspection, nondistended, normoactive bowel sounds Back/Spine General Back: CVA tenderness right Neuro oriented x3 and CN's II-XII intact bilaterally Sensorium / Orientation: alert Motor Exam: strength 5/5 throughout and general weakness Psych mental status grossly normal Skin no rashes or lesions noted and no wounds General Skin Exam: Negative for jaundice or pallor MDM MDM MDM Narrative Medical decision making narrative: Patient presenting with feeling rundown. He states he could not differentiate between that and weakness. He states that weakness was specifically noted on his discharge instructions as a reason to return. He has been able to walk without any difficulty. He worked in the yard yesterday. He has been eating and drinking normally. Is making normal urine and stool. He reports no hematuria or dysuria. He is not had a fever. He does not have a cough or shortness of breath. No nausea or vomiting. His physical exam is consistent with a kidney stone and he only has mild CVA tenderness on the right. He has not taken any oxycodone and is only been taking ibuprofen as needed. I did obtain a urinalysis and there is no evidence of infection here. There is still some occult blood. He just had normal blood work a couple of days ago. At this point I think his symptoms are mild and I do not believe he needs repeat blood work. He is amenable to this. Patient is to continue to make follow-up with urology. Return precautions again discussed. Impression: 1. history of right-sided 6 mm UVJ stone 2. Generalized weakness 3. Hematuria Lab Data Attestation: I reviewed the patient's lab results. Labs: Laboratory Results - last 24 hr 02/04/22 16:14 Urine Color Yellow Urine Clarity Clear Urine pH 6.5 Ur Specific [place] 1.010 Urine Protein Negative Urine Glucose (UA) Normal Urine Ketones Negative Urine Occult Blood 150 H Urine Nitrite Negative Urine Bilirubin Negative Urine Urobilinogen Normal Ur Leukocyte Esterase 25 H Urine RBC 0 SEEN Urine WBC 10-25 SEEN Ur Squamous Epith Cells 0 SEEN Urine Bacteria 0 SEEN Urine Mucus 0 SEEN Discharge Plan Triage Chief Complaint: Weakness ED Provider: Ankur Martines Dx/Rx/DC Orders Instructions: ED Weakness (Uncertain Cause) Prescriptions: No Action triamcinolone acetonide 0.1 % ointment 1 applic TOPICAL DAILY PRN (Reason: .) sildenafil (pulm.hypertension) 20 mg tablet 60 mg PO DAILY PRN (Reason: sexual activity) Label Comments: TAKE 3 TABS BY MOUTH ONCE A DAY NEEDED multivitamin Tablet 1 tablet PO DAILY Prevagen 1 tab PO DAILY levothyroxine 75 MCG tablet 75 mcg PO DAILY nitroglycerin 0.4 MG tablet 0.4 mg sublingual Q5M PRN (Reason: Chest Pain) aspirin 81 MG tablet,delayed release (DR/EC) 81 mg PO DAILY diltiazem HCl 300 MG capsule,extended release 24hr 300 mg PO DAILY pantoprazole 40 MG tablet 40 mg PO DAILY cholecalciferol (vitamin D3) 5,000 UNIT capsule 5,000 unit PO BID valsartan-hydrochlorothiazide 160-25M tablet 1 tab PO DAILY oxycodone-acetaminophen [Percocet] 5-325 mg tablet 1 tab PO Q6H PRN (Reason: pain) 3 Days Qty: 12 0RF ketorolac 10 mg tablet 10 mg PO Q6H PRN (Reason: pain) 5 Days Qty: 20 0RF tamsulosin [Flomax] 0.4 mg capsule 0.4 mg PO DAILY Qty: 14 0RF Repatha SureClick 140 mg/mL pen injector 140 mg subcut Q2W Qty: 2 11RF Hold Instructions: Waiting to discuss with PCP Primary Care Provider: Mayank Gao Referrals: Mayank Gao MD [Primary Care Provider] - Disposition Disposition: Home, Self Care
== END 2022-02-04 18:12 | disposition home or self-care (01) ==
PROVIDERS: Emergency Provider Student in an Organized Health Care Education/Training Program; PCP Family Medicine; Visit Provider Student in an Organized Health Care Education/Training Program
DX: R31.9 Hematuria, unspecified (principal); R53.1 Weakness; I10 Essential (primary) hypertension; I25.10 Atherosclerotic heart disease of native coronary artery without angina pectoris; E78.5 Hyperlipidemia, unspecified
CPT/HCPCS: 81001; 99282

== ENCOUNTER 2022-02-21 12:54 | Day surgery (SDC) | payer MEDICARE, SELFPAY ==
[2017-12-06 13:52] VITALS: BMI 30.9
--- NOTE | 2022-02-21 13:00 | RAD_ITS ---
EXAM: XR ABDOMEN, 1 VIEW CLINICAL INDICATION: PREOP TECHNIQUE: Frontal supine view of the abdomen/pelvis. This report was created using [employer] report generation technology. COMPARISON: CT 02/01/2022 FINDINGS: LOWER THORAX: No acute pathology. GASTROINTESTINAL TRACT: Unremarkable. Non-obstructive. No bowel or stomach distention. ORGANS: Unremarkable as visualized. No organomegaly. No abnormal calcifications. BONES/JOINTS: Degenerative findings in the lumbar spine. Stable sclerotic focus in the right iliac bone. SOFT TISSUES: No acute pathology. RAD/Abdomen Single View IMPRESSION: No acute findings. Electronically Signed: Cm Brown MD at 20:57 EST ,
[2022-02-21 13:31] VITALS: BP 149/82; PULSE 70; RESP 16; TEMP 36.7; O2SAT 97; BMI 30.4
[2022-02-21] MEDS: Cefazolin 2 GM in 0.9% Normal Saline 100 ML IV (15:58)
--- NOTE | 2022-02-21 16:20 | DCINST_ITS ---
Discharge Instructions Diet Discharge Diet: No restrictions, Light diet - advance as tolerated and Soft diet Activity Discharge Activity: Return to Normal Activity Follow Up Care Please Follow Up With: Mikal Qiu MD When: call for appt next week Test Results: Test results from this visit will be discussed in further detail at your follow- up appointment, if applicable. Discharge Plan Admission Primary Reason for Your Visit: right kidney stone Attending Provider: Mikal Qiu Primary Care Provider: Mayank Gao Discharge Orders/Prescriptions Prescriptions: New oxycodone-acetaminophen 5-325 mg tablet 1 tab PO Q6H PRN (Reason: pain) 7 Days Qty: 14 0RF Continued triamcinolone acetonide 0.1 % ointment 1 applic TOPICAL DAILY PRN (Reason: .) sildenafil (pulm.hypertension) 20 mg tablet 60 mg PO DAILY PRN (Reason: sexual activity) Label Comments: TAKE 3 TABS BY MOUTH ONCE A DAY NEEDED multivitamin Tablet 1 tablet PO DAILY Prevagen 1 tab PO DAILY levothyroxine 75 MCG tablet 75 mcg PO DAILY nitroglycerin 0.4 MG tablet 0.4 mg sublingual Q5M PRN (Reason: Chest Pain) aspirin 81 MG tablet,delayed release (DR/EC) 81 mg PO DAILY diltiazem HCl 300 MG capsule,extended release 24hr 300 mg PO DAILY pantoprazole 40 MG tablet 40 mg PO DAILY cholecalciferol (vitamin D3) 5,000 UNIT capsule 5,000 unit PO BID valsartan-hydrochlorothiazide 160-25M tablet 1 tab PO DAILY tamsulosin [Flomax] 0.4 mg capsule 0.4 mg PO DAILY Qty: 14 0RF Repatha SureClick 140 mg/mL pen injector 140 mg subcut Q2W Qty: 2 11RF Hold Instructions: Waiting to discuss with PCP Referrals / Follow Up: Mikal Qiu MD [Med Staff - Active Staff] - Mayank Gao MD [Primary Care Provider] - Disposition Disposition (needs filled in before D/C Order can be placed): Home, Self Care
--- NOTE | 2022-02-21 16:21 | PCM.OPRPT ---
Report of Operation Date of Procedure: 02/21/22 Pre-Operative Diagnosis: Right kidney stone Post-Operative Diagnosis: Same Surgery/Procedure Performed:: Cystoscopy right stent placement right extracorporeal shockwave lithotripsy Description of Surgical Findings:: Patient presents to the hospital for treatment of a kidney stone with shockwave lithotripsy. In the preoperative area and x-ray was done to confirm the location of the stone. The x-ray was reviewed and the stone location was reviewed. In the preoperative setting I spoke with the patient regarding the treatment of the stone how the treatment would be conducted and the expectations after surgery. The patient understands there is a risk of bleeding and infection. Also discussed the very rare risk of hematoma or damage to the kidney. We also discussed the risk that the shockwave machine will fail to break the stone adequately and that the patient may need other surgical procedures. We also discussed the possibility that the patient may need a stent after the procedure. After reviewing the procedure with the patient, the patient is signed the consent form all the patient's questions were addressed and was taken back to the operating room for treatment of a kidney stone. Patient was taken back to the operating room, patient was identified by the nursing staff, we identified the side of the treatment and the patient side of treatment had been marked by my initials. The patient underwent general anesthetic and was placed supine on the lithotripter table. The urethra and genitals were prepped and draped in usual sterile fashion. Using a 21 Macanese rigid cystourethroscope the entire length of the urethra was normal then went into the bladder. Identified the trigone the left and right ureteral orifice. I then cannulated the Right orifice and advanced a wire up into the kidney. I then backloaded a 5 Macanese open ended catheter over the wire and injected contrast to delineate the anatomy. After the retrograde was performed I then used fluoroscopic images and guidance to advanced a wire up into the kidney and over the 0.038 glidewire I advanced a 6 [place] by 26 cm double pigtail stent. I then pulled the 0.038 Glidewire off and the stent coiled in the kidney bladder good position. The bladder was then drained. We confirmed the position of the stent by fluoroscopy We then used fluoroscopy to identify the stone on the right side in the renal pelvis. We then positioned the patient under the lithotripter and we used triangulation technique to identify the location of the stone and then we made sure that the stone was engaged in the F2 focal point of F2 Donier lithoprior machine. Once the patient was positioned appropriately and the stone was identified and placed in the F2 focal point of the lithotripter machine we then proceeded with shockwave lithotripsy. In the beginning the shockwave was delivered at a rate of 90 shocks per minute, we monitor the EKG for any ectopy. The power was slowly increased to 5 kV and subsequently at the 7 kV. We then proceeded with the treatment we move the therapy had around during the treatment to make sure the stone stayed in the F2 focal point during the entire treatment and after 3000 shockwaves were delivered to the stone under fluoroscopic guidance the treatment was completed. The patient was given instructions to call the office to make an a follow-up appointment with an xray to evaluate the success of the treatment, pateint understands that its possible the stones may need another procedure.At this point the patient's anesthetic was reversed patient was extubated and taken back to the PACU in stable condition. Surgeon: Mikal Qiu Type of Anesthesia: General Drains: 6 fr x 26 cm stent Admit VTE Documentation VTE Present on Admission: No VTE Mechan Device Prophylaxis: SCD's VTE Pharm Prophylaxis ordered?: No
[2022-02-21 16:52] VITALS: BP 139/82; BP 149/82; PULSE 67; RESP 18; TEMP 36.9; O2SAT 97
[2022-02-21 17:00] VITALS: BP 138/81; BP 149/82; PULSE 55; RESP 16; O2SAT 95
[2022-02-21] MEDS: Ketorolac 30 MG/ML Syringe IV (17:18)
[2022-02-21 17:20] VITALS: BP 141/85; BP 149/82; PULSE 62; RESP 18; O2SAT 97
[2022-02-21 17:27] VITALS: BP 143/83; BP 149/82; PULSE 57; RESP 18; TEMP 35.9; O2SAT 98
[2022-02-21 18:40] VITALS: BP 144/93; BP 149/82; PULSE 71; RESP 16; TEMP 35.8; O2SAT 98
== END 2022-02-21 18:48 | disposition home or self-care (01) ==
LOC: SDC 12:55 → AC 12:57
PROVIDERS: PCP Family Medicine; Referring Provider Urology; Visit Provider Urology
PROC: (CPT 50590; principal; 2022-02-21 15:00)
DX: N20.0 Calculus of kidney (principal); I10 Essential (primary) hypertension; E03.9 Hypothyroidism, unspecified; Z86.16 Personal history of COVID-19; G47.33 Obstructive sleep apnea (adult) (pediatric); Z95.5 Presence of coronary angioplasty implant and graft; I25.10 Atherosclerotic heart disease of native coronary artery without angina pectoris; Z99.89 Dependence on other enabling machines and devices
CPT/HCPCS: 50590; 52332; 00873; 74018; J7120; C1769; C2617; J2405

== ENCOUNTER → 2022-06-06 | Outpatient (CLI) | payer MEDICARE, SELFPAY ==
[2017-12-06 13:52] VITALS: BMI 30.9
--- NOTE | 2022-06-06 08:05 | CT_ITS ---
STUDY: CT ABDOMEN AND PELVIS WITH CONTRAST REASON FOR EXAM: Male, 67 years old. History of left renal carcinoma. Prior left inguinal hernia repair. RADIATION DOSAGE (If Supplied By Facility): CTDIvol = ( 15.65 ) mGy, DLP = ( 1666.68 ) mGycm TECHNIQUE: Transaxial images were obtained from the dome of the diaphragm to the symphysis pubis without oral contrast. IV 100mL Isovue-300 was administered. Sagittal and coronal images were reconstructed. Individualized dose optimization techniques were used for this CT. COMPARISON: Comparison is made with prior study dated 02/01/2022. FINDINGS: Stable minimal degree of increased markings at the lung bases suggest mild scarring. Coronary artery calcification. There is decreased attenuation of the liver consistent with steatosis. Normal gallbladder and extrahepatic biliary system. Normal spleen. Normal pancreas. Normal bilateral adrenal glands. Normal right kidney. There is a 4.7 cm x 4.4 cm cyst in the inferior medial aspect of the left kidney. There is also evidence of a 1.9 cm cyst in the posterior midportion of the left kidney. Normal visualized stomach. Normal small intestine. There are multiple colonic diverticula consistent with diverticulosis. The appendix is visualized and appears normal. There is scattered atherosclerotic calcification of the abdominal aorta, without a demonstrated aneurysm. Normal inferior vena cava. Normal retroperitoneum. Normal urinary bladder. There is enlargement of the prostate gland. The prostate measures 4.3 cm x 3.9 cm. This causes indentation of the bladder base. Is evidence of prior anterior abdominal wall hernia repair. Small left inguinal hernia containing nondilated small bowel. There are diffuse degenerative changes of the visualized lumbar spine. CT/Abdomen/Pelvis W IV Cont ONLY IMPRESSION: Stable appearance of the left renal cysts. No evidence of renal obstruction at this time. Fatty infiltration of the liver. Sigmoid diverticulosis. Electronically Signed: Randolph Pierre MD at 10:33 EST ,
[2022-06-06 08:50] LABS: CREATININE FINGERSTICK < 0.9 mg/dL (0.70-1.30); EGFR FINGERSTICK > 60.0000 mL/min (>60)
== END | disposition home or self-care (01) ==
PROVIDERS: PCP Family Medicine; Referring Provider Urology; Visit Provider Urology
DX: D30.00 Benign neoplasm of unspecified kidney (principal)
CPT/HCPCS: 74177; Q9967

== ENCOUNTER 2024-12-09 16:00 | Outpatient (RCR) | payer MEDICARE, SELFPAY ==
[2017-12-06 13:52] VITALS: BMI 30.9
--- NOTE | 2024-09-16 15:12 | HP.PTEVAL ---
Patient's Visit Information Visit Information Visit Information: LORENZO STILL is a 69 year old M referred to Physical Therapy by Dr. Evgeny Faith MD with a diagnosis of lumbar decompression DOS: 07/24/24. Date of Evaluation: 09/16/24 Physical Therapist: Delta Cross DPT Visit Plan Frequency: 2x /Week Duration: 4 Weeks Plan: 1) HS stretching 2) neutral spine core stability without increase in LBP May use some modalities if needed. Minimal pain this date. Subjective Subjective: Pt. is here today for his initial evaluation with diagnosis of lumbar decompression DOS: 07/24/24. Pt. is to not lift over 20 lbs and avoid excessive bending, twisting, and lifting. He has a history of previous lumbar surgery ~8 years ago as well. Pt. reports overall doing much better. No radicular symptoms noted. Pt. has been slowly increasing his walking. He reports feeling much better than he was prior to surgery. Pt. is sleeping well, no major issues noted. No radicular symptoms noted. He reports no myotomal weakness noted. Pt. is hopeful to increase his strength in order to get back to all recreational activities and household work without issues. Pain Lumbar spine: Pain Intensity (Out of 10): 0 Pain Intensity Range: 0 and 2 Objective Objective: POSTURE: Pt. has good posture in stance. No lateral shift noted. No marked kyphosis or lordosis noted. PALPATION: Pt. has good healing incision no signs of infection noted. No signs of DVT. NEURO: normal throughout. ROM: LUMBAR SPINE: flexion mod loss, ext mod loss, rotation mod loss bilat, SB mod loss bilat. I did not force ROM, just wanted to see what he felt comfortable to complete, no pain with his motion. Pt. has very tight B HS as well. MMT: Pt. has great distal LE strength, no myotomal weakness noted. R hip: flexion 21#, abd 22#, ext 15#. L hip: flexion 22#, abd 23#, ext 13#. Core strength poor. GAIT: pt. has fairly normal gait pattern without use of AD. STAIRS: normal without HR. Balance/Special Test Scores Oswestry Low Back Score: 10 Goals Goal 1:: LTG: Pt. to be I with HEP Goal Time Frame: 4-6 Weeks Goal 2:: LTG: Pt. to be able to walk 1 mile without increase in LBP. Goal Time Frame: 2-4 Weeks Goal 3:: STG: Pt. to have no LBP with ADLs. 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 Goal Time Frame: 4-6 Weeks Goal 5:: LTG: Pt. to have fair core strength. Goal Time Frame: 4-6 Weeks Rehabilitation Potential Physical Therapy Diagnosis: Pt. has signs and symptoms consistent with lumbar decompression DOS: 07/24/24. Pt. has marked hypomobility, core weakness and would benefit from PT to work on these symptoms in order to get back to all recreational activities and house work. Rehabilitation Potential: Excellent Anticipated Interventions Patient/Client Instruction: Educate patient on: Condition, Plan of Care, Risk Factors and Benefits of Fitness Program For the Purpose of:: To foster healthy habits, To improve decision making, To facilitate caregiver knowledge, To improve self management, To prevent re-injury and To improve ability to perform tasks related to life management Therapeutic Exercise to Include: Strength training, Power training, Balance training, Body mechanics, Postural training, Flexibilty training and Dynamic Lumbar Stabilization For the Purpose of:: To decrease pain, To decrease swelling/inflammation, To increase ROM, To improve nutrient delivery to tissue, To increase oxygenation perfusion and To improve muscle performance and motor function Manual Therapy Techniques to Include: Soft tissue mobilization For the Purpose of:: To decrease pain, To decrease swelling/inflammation, To increase ROM and To improve nutrient delivery to tissue IF ES: Yes Cryotherapy (ice pack, ice massage): Yes For the Purpose of:: To decrease pain, To decrease swelling/inflammation and To increase ROM Text: Thank you for the opportunity to evaluate your patient. For Medicare and Medicare HMO plans, please review the plan of care and approve it. It will need to be FAXED BACK to us at [phone] for Medicare purposes. For Medicare only, by signing this I certify the plan of care. Please let me know if there are questions or concerns regarding this plan of care. Physician Signature: Date:
--- NOTE | 2024-12-09 19:05 | HP.PTDCSUM ---
Discharge Summary D/C summary: It has been my pleasure to treat LORENZO STILL referred by Dr. Evgeny Faith MD, with the diagnosis of lumbar decompression DOS: 07/24/24 for a total of 10 visit(s). Discharge Date: 12/09/24 Please see the following information for a summary of their discharge status. Subjective Subjective: Pt. reports being 80% better overall. Pt. 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 pt. reports no pain currently. Pt. is to go back to physcian early next month. Pt. reports doing well with his HEP. Pain Lumbar spine: Pain Intensity (Out of 10): 0 Overall Improvement % Improvement: 80 Objective Objective/Function: ROM: Pt. has great ROM of lumbar spine and B hips. Pt. has decent HS length as well. He walking really well. Great strength throughout BLEs and fair core strength. He is no longer having any issues. Pt is compliant with all HEP. He reports not having any issues at this point in time. Goals Goal 1:: LTG: Pt. to be I with HEP Goal Progress: Goal Met Goal 2:: LTG: Pt. to be able to walk 1 mile without increase in LBP. Goal Progress: Goal Met Goal 3:: STG: Pt. to have no LBP with ADLs. 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 Goal Progress: Goal Met Goal 5:: LTG: Pt. to have fair core strength. Goal Progress: Goal Met Plan Plan: Pt. to be DC from PT at this point in time. D/C Information d/c sentence: If there are questions or concerns regarding this patient's physical therapy, please feel free to call me at [phone]. Thank you for the referral of this patient. Sincerely, Delta Kendrick Sipos, DPT Balance/Gait/Functional tests Balance/Special Test Scores Oswestry Low Back Score: 2 Improvement % Improvement: 80
== END 2024-12-09 19:00 | disposition home or self-care (01) ==
LOC: PT 16:00
PROVIDERS: PCP Family Medicine; Referring Provider Orthopaedic Surgery Orthopaedic Surgery of the Spine; Visit Provider Orthopaedic Surgery Orthopaedic Surgery of the Spine
DX: Z47.89 Encounter for other orthopedic aftercare (principal); Z90.89 Acquired absence of other organs
CPT/HCPCS: 97110; 97161; 97530